=== PATIENT | female | born 1945 | race Caucasian/White ===

== ENCOUNTER 2023-09-15 06:03 | Observation (INO) | payer OTHER, SELFPAY ==
[2023-09-15] VITALS (8 sets, daily range): BP systolic 109–153; BP diastolic 60–88; BMI 27.1; BMI 27.0
[2023-09-15 00:50] LABS: ALT (SGPT) 21 U/L (0-35); AST (SGOT) 30 U/L (14-36); Albumin 3.6 g/dl (3.5-5.0); Alkaline Phosphatase 86 U/L (38-126); Blood Urea Nitrogen 29 mg/dl (7-17); Calcium 8.6 mg/dl (8.4-10.2); Carbon Dioxide 21 mmol/L (22-30); Chloride 111 mmol/L (98-107); Estimated Creatinine Clearance 47 ml/min; Glucose 117 mg/dl (70-99); Potassium 4.1 mmol/L (3.5-5.1); Sodium 136 mmol/L (135-145); Total Bilirubin 0.7 mg/dl (0.2-1.3); Total Protein 6.2 g/dl (6.3-8.2); eGFR > 60.00
[2023-09-15 00:53] LABS: % Basophils 0.5 % (0-2); % Eosinophils 1.3 % (0-6); % Immature Granulocytes 1.9 % (0-0.5); % Lymphocytes 11.7 % (20.5-51.1); % Monocytes 6.8 % (1.7-9.3); % Neutrophils 77.8 % (42.2-75.2); Absolute Basophils 0.1 10^3/uL (0-0.2); Absolute Eosinophils 0.1 10^3/uL (0-0.7); Absolute Immature Granulocytes 0.2 10^3/uL (0-0.05); Absolute Lymphocytes 1.2 10^3/uL (1.2-3.4); Absolute Monocytes 0.7 10^3/uL (0.1-0.6); Absolute Neutrophils 7.9 10^3/uL (1.4-6.5); Hematocrit 34.2 % (37.0-47.0); Hemoglobin 11.3 g/dL (12.0-16.0); Mean Corpuscular Hgb 30.5 pg (27.0-31.0); Mean Corpuscular Volume 92.4 fL (81.0-99.0); Nucleated Red Blood Cells % 0 %; Platelet Count 165 10^3/uL (130-400); Red Cell Dist. Width 17.2 % (11.5-14.5); White Blood Cell Count 10.2 10^3/uL (4.8-10.8)
[2023-09-15] MEDS: MORPHINE SULFATE 2 MG IV ×3 (02:26→09:58)
--- NOTE | 2023-09-15 03:07 | ED.GENMED ---
History of Present Illness
General
Chief Complaint: Fall
Source: patient
Exam Limitations: none
Time Seen by Provider: 09/15/23 00:44
Nursing documentation reviewed up to this point in time: agreed with
Travel History
Have you had any contact with someone who has COVID-19?: No
Do you have any symptoms of coronavirus? Fever > 100 degrees, chills, cough, shortness of breath, sore throat, loss of taste or smell, muscle aches, or headache?: No
History of Present Illness
History of Present Illness:
The patient is a 78-year-old female who reports that she tripped and fell over her walker just prior to arrival. She reports she fell onto her left side and says severe pain in the left buttock area. She did not hit her head. She denies neck pain
and back pain.
Past History
Past History
ED Past Medical History: Asthma, HTN and Other (PE, kidney stones)
ED Past Surgical History: Bowel resection and Other (Varicose vein surgery, kidney stone removal with kidney rupture, tubal ligation, 3 feet of small intestine removed.)
Social History
Tobacco: Non-smoker
Alcohol: None
Drug: None
Personal:
Living: alone
Employment: Retired
Family History
Family History: Other (Diabetes, hypertension, CAD)
Review of Systems
Review of Systems
Allergies reviewed?: Yes
All Other Systems: ROS reviewed and negative except as documented in HPI and ROS
Constitutional: Reports no symptoms
EENT: Reports no symptoms
Respiratory: Reports no symptoms
Cardiac: Reports no symptoms
ABD/GI: Reports no symptoms
: Reports no symptoms
Musculoskeletal: Reports joint pain
Neurological: Reports no symptoms
Endocrine: Reports no symptoms
Hematologic/Lymphatic: Reports no symptoms
Psychiatric: Reports no symptoms
Phy Exam
Physical Exam
Physical Exam:
Physical Exam
General: no apparent distress, not acutely ill. Atraumatic appearing face and head
Neck: supple. no meningeal signs. normal psoterior pharynx. Nontender
Heart: s1/s2 regular rate and rhythm, no murmur. equal radial pulses.
Lungs: no acute respiratory distress. clear bilaterally
Abdomen: normal bowel sounds. not tender. no CVAT
Neuro: alert and oriented. no focal neurological deficits
Skin: no rash
Psychiatric: well kept. interactive and cooperative
Extremities: no edema. Point tender posterior proximal leg. Patient guards left hip. Strong pulses of bilateral feet
Course
Orders/Labs/Results
Orders:
Orders
09/15/23 00:24
Complete Blood Count/With Diff Urgent
Comprehensive Metabolic Panel Urgent
09/15/23 01:06
Hip, Left 2-3 Views [CR Hip - LT w/wo Pel 2-3 Vw*] Urgent
Comment:
Reason For Exam: fall
Include a pelvis x-ray?: Yes
09/15/23 02:[address] Pelvis W/o Iv Contrast Urgent
Comment: ok to modify per DR Edmonds
Reason For Exam: fall, hip pain
Morphine Sulfate 2 mg .ROUTE .STK-MED ONE
09/15/23 02:25
Morphine Sulfate 2 mg IV NOW STA
09/15/23 03:19
Electrocardiogram (*1) Urgent
Reason for Study: PreOp
EKG- Treatment ONCE
Abnormal Lab Results
09/15/23
00:24
RBC 3.70 L 10^6/uL
(4.20-5.40)
Hgb 11.3 L g/dL
(12.0-16.0)
Hct 34.2 L %
(37.0-47.0)
RDW 17.2 H %
(11.5-14.5)
MPV 13.0 H fL
(7.4-10.4)
Abs Immat Gran (auto) 0.2 H 10^3/uL
(0-0.05)
Absolute Neuts (auto) 7.9 H 10^3/uL
(1.4-6.5)
Absolute Monos (auto) 0.7 H 10^3/uL
(0.1-0.6)
Immature Gran % 1.9 H %
(0-0.5)
Neutrophils % 77.8 H %
(42.2-75.2)
Lymphocytes % 11.7 L %
(20.5-51.1)
Chloride 111 H mmol/L
(98-107)
Carbon Dioxide 21 L mmol/L
(22-30)
BUN 29 H mg/dl
(7-17)
Glucose 117 H mg/dl
(70-99)
Total Protein 6.2 L g/dl
(6.3-8.2)
09/15/23 00:24
09/15/23 00:24
Vital Signs
Initial and Last Documented VS:
Initial Vital Signs
Temp Pulse Resp BP Pulse Ox
98.1 F 95 18 153/79 97
09/15/23 00:21 09/15/23 00:21 09/15/23 00:21 09/15/23 00:21 09/15/23 00:21
Last Documented Vital Signs
Temp Pulse Resp BP Pulse Ox
98.1 F 95 18 153/79 98
09/15/23 00:21 09/15/23 00:21 09/15/23 00:21 09/15/23 00:21 09/15/23 01:00
MDM/Problems Addressed
Differential Diagnosis Includes:
Left femur fracture, left pelvic fracture, lumbar spine fracture
MDM/Problems Addressed:
Patient presents with acute left hip pain after falling
Acute Exacerbation and/or Progression of Chronic Illness: HTN
*Pulse Oximetry
Patient hypoxic: no
*EKG
Interpreted by ED Provider?: NA
*Senior Label Specialist Interpretation
Rate: Senior Label Specialist- N/A
*Critical Care Note
Total Time (30-74mins, 75-104mins- exclusive of procedures): Not Applicable
Data Reviewed
Source: patient
Patient Management
Social determinants of health affecting care: Poor social support
Discussion with other providers: Hospitalist
ED Attending Note
-
Portions of this chart may have been created with voice recognition software.� Occasional wrong word or��sound alike� substitutions may have occurred due to the inherent limitations of voice recognition software.
Discharge Plan
Departure
Patient Disposition: Admit
Date of Disposition: 09/15/23
Time of Disposition: 03:07
Admit to: Med/Surg
Presentation/result/management discussed w/ accepting MD/DO: Hospitalist
Patient with high blood pressure during this ER visit?: Yes
Condition: Good
Covid-19: Not Applicable
Discharge Problem:
acute pubic rami fracture
Prescriptions:
No Action
cyanocobalamin (vitamin B-12) 1,000 MCG tablet
1,000 mcg PO MONTHLY
famotidine 20 MG tablet
10 mg PO DAILY
cranberry 400 MG capsule
1 tab PO DAILY
loratadine 10 MG tablet
10 mg PO DAILY@1200
iron, carbonyl [Feosol] 45 MG tablet
45 mg PO DAILY
cholecalciferol (vitamin D3) 2,000 UNITS tablet
3,000 units PO DAILY
multivitamin with folic acid [Tab-A-Sawyer] 1 TABLET tablet
1 tab PO DAILY
carvedilol 6.25 MG tablet
6.25 mg PO BID 30 Days Qty: 60 0RF
Align 4 MG capsule
4 mg PO DAILY
acetaminophen [Tylenol Arthritis Pain] 650 MG tablet extended release
1,300 mg PO Q8HPRN PRN (Reason: mild pain)
diltiazem HCl 120 MG capsule,extended release 12 hr
240 mg PO DAILY
Probiotic
1 tab PO DAILY
meclizine 25 MG tablet
25 mg PO Q8HPRN PRN (Reason: nausea or vertigo) Qty: 21 0RF
cyclosporine [Restasis] 10 DROPS dropperette
1 drp BOTH EYES BID
Eliquis 5 MG tablet
5 mg PO BID
Voltaren
1 dose topical PRN PRN (Reason: pain)
Prolia 60 MG/ML syringe
60 mg SQ .[id number]
levalbuterol tartrate 1 PUFF HFA aerosol inhaler
1 puff inhalation R Q4HPRN PRN (Reason: SOB)
cephalexin 500 mg capsule
500 mg PO BID 7 Days Qty: 14 0RF
hydrocodone-acetaminophen 5-325 mg tablet
1 tab PO Q8H PRN (Reason: Pain) Qty: 10 0RF
ondansetron HCl 4 mg tablet
4 mg PO Q8H PRN (Reason: nausea and vomiting) 4 Days Qty: 10 0RF
diazepam 5 mg tablet
5 mg PO Q8H PRN (Reason: muscle spasm) Qty: 15 0RF
prednisone 10 mg Tablet
See Rx Instructions .ROUTE .COMPLEX Qty: 30 0RF
Rx Instructions:
Take By Mouth:
40 mg daily x3 days, 30 mg daily x3 days,
20 mg daily x3 days, 10 mg daily x3 days.
Referrals:
Zenobia Spivey MD [Family Provider] -
Interventions
Interventions:
*Risk Screen - Suicide Last Done: 09/15/23 00:21
*General Assessment Last Done: 09/15/23 00:21
*Neglect/Abuse Screening Last Done: 09/15/23 00:21
ED- Fall Risk Assessment Last Done: 09/15/23 00:28
ED-Musculoskeletal Assessment Last Done: 09/15/23 00:28
ED- Neurological Assessment Last Done: 09/15/23 00:28
ED-Skin Assessment Last Done: 09/15/23 00:28
--- NOTE | 2023-09-15 05:44 | HPS.HSE ---
Family Physician
-
Family Physician: Zenobia Spivey
Chief Complaint
-
Fall
History of Present Illness
Patient is a 78y F with PMH significant for hypertension, osteoporosis and prior PE who presents to ED complaining of fall at home. Patient states that she ambulates with a walker at baseline. This evening she was walking and went to turn when
she leaned to far to the L and fell to the side. She denies any prodrome of lightheadedness, dizziness, chest pain, etc prior to the fall. She denies striking her head. No LOC.
Patient landed on her L sided and noted immediate pain in the L groin region. She presented to ED for evaluation where imaging reveals evidence of a L pelvic fracture.
Patient notes that she recently suffered vertebral compression fractures due to severe osteoporosis (no fall / injury). She has been on a regimen of pain medications at home - with little improvement in her discomfort.
In addition, she was started on Lasix in July for LE edema. She states that she stopped taking this about 1 week ago due to issues with urinary frequency.
Patient was treated for a UTI with 10 days of PO abx as an outpatient. She just completed this course; however, she continues to complain of urinary frequency and dysuria.
No fevers / chills.
No chest pain or dyspnea.
Medical History
Past Medical History
Past Medical History: Reports Other
Additional Past Medical History:
Hypertension
Osteoporosis
Chronic HFpEF
B12 Deficiency
History of PE
Iron Deficiency Anemia
Nephrolithiasis
PUD / GERD
SVT
DJD
Past Surgical History: Reports Other
Additional Past Surgical History:
Eye Surgeries
Tubal Ligation
Cholecystectomy
Partial Bowel Resection for Crohn's / Ileitis (in her 20s)
Skin Cancer Excisions
Cataracts
Ureteroscopies
Social History
Tobacco: Non-smoker
Alcohol: None
Drug: None
Family History
Family History: Not pertinent
Allergies / Home Medications
Allergies reflects when Allergies were last updated in [facility].
Home Medications with original date entered in [facility]
Allergy/Medication List:
Allergies
Allergy/AdvReac Type Severity Reaction Status Date / Time
ampicillin Allergy Rash Verified 09/15/23 00:19
ibuprofen Allergy does not Verified 09/15/23 00:19
take do to
blood
thinners.
latex [Latex] Allergy SWELLING,RA Verified 09/15/23 00:19
SH
NSAIDS (Non-Steroidal Allergy does not Verified 09/15/23 00:19
Anti-Inflamma take due
to blood
thinners
Penicillins Allergy Rash Verified 09/15/23 00:19
Sulfa (Sulfonamide Allergy Rash Verified 09/15/23 00:19
Antibiotics)
Seasonal Allergies Allergy congestion Uncoded 09/15/23 00:19
Home Medications
cholecalciferol (vitamin D3) 50 mcg (2,000 unit) tablet 4,000 units PO DAILY 12/19/19
cranberry 400 mg capsule 1 tab PO DAILY 12/19/19
cyanocobalamin (vitamin B-12) 1,000 mcg tablet 1,000 mcg PO Q3W 12/19/19
famotidine 20 mg tablet 20 mg PO HS 12/19/19
iron, carbonyl 45 mg tablet (Feosol) 45 mg PO DAILY 12/19/19
multivitamin with folic acid 400 mcg tablet (Tab-A-Sawyer) 1 tab PO DAILY 12/19/19
Bifidobacterium infantis 4 mg capsule (Align) 4 mg PO DAILY 01/09/20
acetaminophen 650 mg tablet,extended release (Tylenol Arthritis Pain) 1,300 mg PO Q8HPRN PRN mild pain 01/09/20
apixaban 5 mg tablet (Eliquis) 5 mg PO BID 10/20/21
levalbuterol tartrate 45 mcg/actuation aerosol inhaler 1 puff inhalation R Q4HPRN PRN SOB 10/20/21
carvedilol 12.5 mg tablet 12.5 mg PO BID 09/15/23
furosemide 20 mg tablet (Lasix) 20 mg PO DAILY 09/15/23
hydrocodone 10 mg-acetaminophen 325 mg tablet 1 tab PO Q6H PRN Pain 09/15/23
methenamine hippurate 1 gram tablet (Hiprex) 1 g PO BID 09/15/23
peg 400-propylene glycol (PF) 0.4 %-0.3 % eye drops in a dropperette (Systane (PF)) 1 drp ophthalmic (eye) BID 09/15/23
potassium chloride 10 mEq tablet,extended release 10 meq PO BID 09/15/23
tramadol 50 mg tablet 50 mg PO TID PRN Pain 09/15/23
travoprost 0.004 % eye drops (Travatan Z) 1 drp ophthalmic (eye) QPM 09/15/23
turmeric 400 mg capsule mg PO 09/15/23
Review of Systems
-
History Source: Patient
A 12 point ROS was completed and negative except as noted: Yes
Constitutional: Reports Fatigue; Denies Fever or Chills
EENT: Denies Sore Throat
Respiratory: Denies Cough or Trouble Breathing
Cardiac: Denies Chest Pain, Palpitations or Syncope
Abdomen/GI: Denies Abdominal Pain, Nausea, Vomiting or Diarrhea
: Reports Dysuria and Frequency; Denies Flank Pain or Incontinence
Musculoskeletal: Reports Joint Pain, Edema and Other (Back Pain)
Neurological: Denies Dizzy or Headache
Psych: Reports Depression
Physical Exam
Vital Signs
Vital Signs
Temp Pulse Resp BP Pulse Ox
98.1 F 95 18 153/79 98
09/15/23 00:21 09/15/23 00:21 09/15/23 00:21 09/15/23 00:21 09/15/23 01:00
Physical Exam
General: Other (78y F in mild distress due to pain.)
HEENT: Moist mucous membranes and PERRLA
Respiratory: Clear; No Wheezes, Rales or Rhonchi
Cardiac: S1/S2, Regular Rhythm and Murmur (II/ ELOISE)
GI: Soft, Non Tender, Non Distended and Normal Bowel Sounds
Musculoskeletal: No Clubbing, No Cyanosis and Other (2+ pitting edema b/l LEs.)
Neuro: AO x 3
Laboratory Results
-
09/15/23 00:24
09/15/23 00:24
Laboratory Results
Total Bilirubin 0.7 mg/dl (0.2-1.3) 09/15/23 00:24
AST 30 U/L (14-36) 09/15/23 00:24
ALT 21 U/L (0-35) 09/15/23 00:24
Alkaline Phosphatase 86 U/L (38-126) 09/15/23 00:24
Impression/Plan
-
A/P: Patient is a 78y F with PMH significant for hypertension and osteoporosis who presents to ED for evaluation s/p fall at home.
Fall at Home
Pelvic Fracture
- Observe overnight for further evaluation and treatment.
- CT shows fracture L pubis symphysis into the L superior pubic ramus.
- Pain control / supportive care.
- PT / OT evaluations and weight bearing as tolerated.
Vertebral Compression Fractures
Osteoporosis
- Patient previously on Prolia, but stopped fairly recently for dental procedure(s).
- Has since had non-traumatic vertebral fractures with uncontrolled pain.
- Continue efforts at pain control as noted above.
- If vertebral pain continues to limit mobility - consider IR / vertebroplasty.
Benign Hypertension
- Stable. Continue outpatient med regimen and adjust as needed.
Chronic HFpEF
- Recently prescribed Lasix for LE swelling (07/2023).
- Patient notes that she stopped this due to urinary frequency.
- Would restart Lasix given edema noted on exam.
- Follow I/Os, daily weights, etc.
- Echo done 07/2023 with normal LVEF.
Chronic Anemia - Multifactorial
- Stable. Documented components of iron deficiency and B12 deficiency.
- Continue replacement.
- Follow H&H for changes.
History of PE - Unprovoked
DVT Prophylaxis
- Would continue Eliquis for now given increased risk for VTE while relatively immobile.
- Monitor for worsening anemia, evidence of bleeding, etc.
Code Status: Full
[2023-09-15 07:53] LABS: Glucose - Point of Care 109 mg/dl (70-99)
--- NOTE | 2023-09-15 08:08 | W.PN.HOSP.TC ---
Today's Communication/Plan
-
see A/P
Assessment / Plan
Assessment / Plan
78y F with PMH significant for hypertension, osteoporosis and prior PE who presented to ED complaining of fall at home.�Patient states that she ambulates with a walker at baseline. In the evening of admission, she was walking and went to turn
when she leaned too far to the L and fell to the side.� She denies any prodrome of lightheadedness, dizziness, chest pain, etc prior to the fall.� She denies striking her head.�No LOC.
Patient landed on her L sided and noted immediate pain in the L groin region.� She presented to ED for evaluation where imaging reveals evidence of a L pelvic fracture.
Patient notes that she recently suffered vertebral compression fractures due to severe osteoporosis (no fall / injury).�She has been on a regimen of pain medications at home - with little improvement in her discomfort.
In addition, she was started on Lasix in July for LE edema.�She states that she stopped taking this about 1 week ago due to issues with urinary frequency.
Patient was treated for a UTI with 10 days of PO abx as an outpatient.� She just completed this course; however, she continues to complain of urinary frequency and dysuria.
No fevers / chills. No chest pain or dyspnea.
A/P:
# Mechanical fall at Home
# Pelvic Fracture
CT shows fracture L pubis symphysis into the L superior pubic ramus.
Pain control / supportive care. Bowel regimen added while on pain meds
PT / OT evaluations and weight bearing as tolerated.
# Vertebral Compression Fractures
# Osteoporosis
Patient previously on Prolia, but stopped fairly recently for dental procedure(s).
Has since had non-traumatic vertebral fractures with uncontrolled pain.
Continue efforts at pain control as noted above.
If vertebral pain continues to limit mobility - consider IR / vertebroplasty.
# Benign Hypertension�- Stable.�
Continue outpatient med regimen and adjust as needed.
# Chronic HFpEF
Recently prescribed Lasix for LE swelling (07/2023). Patient notes that she stopped this due to urinary frequency.
Would restart Lasix given edema noted on exam.
Follow I/Os, daily weights, etc.
Echo done 07/2023 with normal LVEF.
# Chronic Anemia - Multifactorial- Stable.�
Documented components of iron deficiency and B12 deficiency.
Continue replacement.
Follow H&H for changes.
# History of PE - Unprovoked
# DVT Prophylaxis
Would continue Eliquis for now given increased risk for VTE while relatively immobile.
Monitor for worsening anemia, evidence of bleeding, etc.
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
Code Status:� Full
Anticipated Discharge: 24 - 48 hours
Subjective/Interval History
-
Date of Service: September 15, 2023
Objective Data
-
Labs:
Laboratory Results
09/15/23
00:24
WBC 10.2
Hgb 11.3 L
Hct 34.2 L
Plt Count 165
Sodium 136
Potassium 4.1
Chloride 111 H
Carbon Dioxide 21 L
BUN 29 H
Creatinine 0.9
Glucose 117 H
Calcium 8.6
Total Bilirubin 0.7
AST 30
ALT 21
Alkaline Phosphatase 86
Vital Signs:
Vital Signs
Temp Pulse Resp BP Pulse Ox
36.7 C 95 18 153/79 98
09/15/23 00:21 09/15/23 00:21 09/15/23 00:21 09/15/23 00:21 09/15/23 01:00
Review of Systems
-
Musculoskeletal: Reports Other (L hip pain)
Physical Exam
-
General: Well Developed, Well Nourished, No Apparent Distress, Comfortable and Conversant; Negative Respiratory Distress
HEENT: Normocephalic, Atraumatic, Nose Appears Normal and Ears Appear Normal; Negative Oxygen
Respiratory: Clear to Auscultation and Non Labored Respirations; Negative Accessory Resp Muscle Use
Cardiac: Regular Rhythm and S1/S2
GI: Soft, Nontender, Nondistended and Normal Bowel Sounds
Musculoskeletal: Edema, Right Lower Extrem and Edema, Left Lower Extrem
Skin: Warm and Dry
Neuro: Awake, Alert, Oriented and AO x 3
Psych: Calm and Intact Judgement/Insight
Data Reviewed
-
Labs: Labs Reviewed by me
[2023-09-15 09:08] LABS: Urine Albumin Negative (Neg - Trace); Urine Bilirubin Negative (Negative); Urine Character Clear (Clear); Urine Color Yellow; Urine Glucose Negative (Negative); Urine Ketone Negative (Negative); Urine Leukocyte Negative (Negative); Urine Nitrite Negative (Negative); Urine Occult Blood 4+ (Negative); Urine Specific Gravity 1.015 (<1.030); Urine Urobilinogen Negative (Neg - 1+)
[2023-09-15 09:39] LABS: Urine Amorphous Seen; Urine Mucus Few
[2023-09-15 09:40] LABS: Urine Bacteria Few (Negative); Urine White Cell 0-2 /HPF (0-5)
[2023-09-15] MEDS: TYLENOL 1000 MG PO ×3 (09:59→21:27)
[2023-09-15] MEDS: LASIX 20 MG PO (09:59)
[2023-09-15] MEDS: VITAMIN D3 (cholecalciferol) 100 MCG PO (10:00)
[2023-09-15] MEDS: COREG 12.5 MG PO ×2 (10:00→21:27)
[2023-09-15] MEDS: ELIQUIS 5 MG PO ×2 (10:00→21:27)
[2023-09-15] MEDS: FEOSOL 325 MG PO (10:00)
[2023-09-15 11:49] LABS: TSH Reflex To Free T4 6.53 uIU/ml (0.47-4.68)
[2023-09-15 12:19] LABS: Free T4 0.98 ng/dl (0.78-2.19)
--- NOTE | 2023-09-15 13:48 | CM ---
CM met with patient in room. Patient confirmed demographics. Patient lives independently in a first floor apartment.Patient does not have a history of VN or SNF. Patient uses a cane and walker for ambulation. Patient is active with her PCP and uses
[facility] in [place] for medication services. RODRIGUEZ letter given an discussed.
CM discussed SNF options. Patient and daughter are agreeable to placement. CM pending PT recommendations. CM sent preliminary referrals to [facility], [facility] and [facility]. Patient's daughter will review Medicare.gov ratings and
contact CM with further choices.
PLAN: SNF
[2023-09-15] MEDS: ROXICODONE 5 MG PO ×2 (13:54→18:53)
[2023-09-15] MEDS: TRAVATAN Z 1 DROP OPHTH (17:14)
--- NOTE | 2023-09-15 18:50 | PTCARENOTE ---
1844 Pt arrived from ER via stretcher. Alert and oriented x 3. Pt able to take a few steps from stretcher to bed with assitance (rolling walker).
VS stable. Pulse ox 97% on room air. Noted MD orders, pt requested pain med. Roxicodone 5 mg po given as ordered. Reported to switchboard clerk nurse.
[2023-09-15] MEDS: PEPCID 20 MG PO (21:28)
[2023-09-16] VITALS (7 sets, daily range): BP systolic 83–149; BP diastolic 52–82; PULSE 92–99; O2SAT 95
[2023-09-16] MEDS: ROXICODONE 5 MG PO ×4 (04:07→23:52)
[2023-09-16 08:01] LABS: Hematocrit 30.6 % (37.0-47.0); Hemoglobin 9.9 g/dL (12.0-16.0); Mean Corp Hgb Conc. 32.4 g/dL (33.0-37.0); Mean Corpuscular Hgb 30.4 pg (27.0-31.0); Mean Corpuscular Volume 93.9 fL (81.0-99.0); Red Blood Cell Count 3.26 10^6/uL (4.20-5.40); Red Cell Dist. Width 17.2 % (11.5-14.5)
[2023-09-16 08:20] LABS: Blood Urea Nitrogen 23 mg/dl (7-17); Calcium 8.6 mg/dl (8.4-10.2); Chloride 111 mmol/L (98-107); Glucose 91 mg/dl (70-99); Potassium 4.1 mmol/L (3.5-5.1); Sodium 137 mmol/L (135-145)
[2023-09-16 08:22] LABS: Platelet Count 98 10^3/uL (130-400)
[2023-09-16 08:23] LABS: Mean Platelet Volume 12.7 fL (7.4-10.4)
[2023-09-16 08:44] LABS: Carbon Dioxide 24 mmol/L (22-30); Estimated Creatinine Clearance 47 ml/min; eGFR > 60.00
--- NOTE | 2023-09-16 09:12 | W.PN.HOSP.TC ---
Today's Communication/Plan
-
see A/P
Assessment / Plan
Assessment / Plan
78y F with PMH significant for hypertension, osteoporosis and prior PE who presented to ED complaining of fall at home.�Patient states that she ambulates with a walker at baseline. In the evening of admission, she was walking and went to turn
when she leaned too far to the L and fell to the side.� She denies any prodrome of lightheadedness, dizziness, chest pain, etc prior to the fall.� She denies striking her head.�No LOC.
Patient landed on her L sided and noted immediate pain in the L groin region.� She presented to ED for evaluation where imaging reveals evidence of a L pelvic fracture.
Patient notes that she recently suffered vertebral compression fractures due to severe osteoporosis (no fall / injury).�She has been on a regimen of pain medications at home - with little improvement in her discomfort.
In addition, she was started on Lasix in July for LE edema.�She states that she stopped taking this about 1 week ago due to issues with urinary frequency.
Patient was treated for a UTI with 10 days of PO abx as an outpatient.� She just completed this course; however, she continues to complain of urinary frequency and dysuria.
No fevers / chills. No chest pain or dyspnea.
A/P:
# Mechanical fall at Home
# Pelvic Fracture
CT shows fracture L pubis symphysis into the L superior pubic ramus.
Pain control with Tylenol oxycodone, IV morphine. Bowel regimen while on opiate. Added lidocaine patch
PT / OT recc acute rehab. Physiatry consulted.
# Vertebral Compression Fractures
# Osteoporosis
Patient previously on Prolia, but stopped fairly recently for dental procedure(s).
Has since had non-traumatic vertebral fractures with uncontrolled pain.
Continue efforts at pain control as noted above.
If vertebral pain continues to limit mobility - consider IR / vertebroplasty.
# Benign Hypertension�- Stable.�
Continue outpatient med regimen and adjust as needed.
# Chronic HFpEF
Recently prescribed Lasix for LE swelling (07/2023). Patient notes that she stopped this due to urinary frequency.
Restarted low dose Lasix given edema noted on exam. Follow I/Os, daily weights, etc.
Echo done 07/2023 with normal LVEF.
# Chronic Anemia, Multifactorial- Stable.�
Documented components of iron deficiency and B12 deficiency.
Continue replacement.
Follow Hgb for changes.
# History of PE - Unprovoked
# DVT Prophylaxis
Would continue Eliquis for now given increased risk for VTE while relatively immobile.
Monitor for worsening anemia, evidence of bleeding, etc.
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
Code Status:� Full
DW RN
Anticipated Discharge: 24 - 48 hours
Subjective/Interval History
-
Date of Service: September 16, 2023
Objective Data
-
Labs:
Laboratory Results
09/16/23
06:42
WBC 6.0
Hgb 9.9 L
Hct 30.6 L
Plt Count 98 L D
Sodium 137
Potassium 4.1
Chloride 111 H
Carbon Dioxide 24
BUN 23 H
Creatinine 0.9
Glucose 91
Calcium 8.6
Vital Signs:
Vital Signs
Temp Pulse Resp BP Pulse Ox
37.1 C 98 20 132/82 96
09/16/23 07:30 09/16/23 07:30 09/16/23 07:30 09/16/23 07:30 09/16/23 07:30
Review of Systems
-
Musculoskeletal: Reports Other (lower back pain, L hip pain)
Physical Exam
-
General: Well Developed, Well Nourished, No Apparent Distress, Comfortable and Conversant; Negative Respiratory Distress
HEENT: Normocephalic, Atraumatic, Nose Appears Normal and Ears Appear Normal; Negative Oxygen
Respiratory: Clear to Auscultation and Non Labored Respirations; Negative Accessory Resp Muscle Use
Cardiac: Regular Rhythm and S1/S2
GI: Soft, Nontender, Nondistended and Normal Bowel Sounds
Musculoskeletal: Edema, Right Lower Extrem and Edema, Left Lower Extrem
Skin: Warm and Dry
Neuro: Awake, Alert, Oriented and AO x 3
Psych: Calm and Intact Judgement/Insight
Data Reviewed
-
Labs: Labs Reviewed by me
[2023-09-16] MEDS: TYLENOL 1000 MG PO ×3 (10:00→22:02)
[2023-09-16] MEDS: ELIQUIS 5 MG PO ×2 (10:01→20:15)
[2023-09-16] MEDS: LASIX 20 MG PO (10:02)
[2023-09-16] MEDS: COREG 12.5 MG PO ×2 (10:02→20:12)
[2023-09-16] MEDS: VITAMIN D3 (cholecalciferol) 100 MCG PO (10:03)
[2023-09-16] MEDS: FEOSOL 325 MG PO (10:03)
[2023-09-16] MEDS: LIDOCAINE 4% PATCH 2 PATCH TOPICAL (10:04)
--- NOTE | 2023-09-16 10:39 | CM ---
Addendum entered by Elsy Sen 09/16/23 12:53:
DaughterShital, called; reported that family would be agreeable to [facility] if bed at [facility] was not available when stable for discharge. Third preference for Acute Rehab would be [facility]
Original Note:
PT recommends Acute Rehab when medically stable for discharge
CM received a call from patient's daughterShital, # [phone] after patient called her to tell her that Attending recommended [facility]
Explained discharge plan process for acute rehab hospital to daughter
PM&R ordered
Referrals to [place] locations sent via [facility]
Patient will need insurance Auth, Philip 64
Per Di from [facility] location may not have bed available until Wednesday
CM contacted daughterShital, and asked if family would consider another [place] location if no bed @ was available; and identified other facilities for referral.
Daughter reported that she would speak with her sister and call CM back with decision
--- NOTE | 2023-09-16 11:26 | CON.GI ---
Addendum entered and electronically signed by Lora Reid MD 09/16/23 20:35:
I saw and examined the patient.
The WHEEL PRESS CLERK or PA's note was reviewed and I agree with the note.
Comment: 78-year-old female with history of asthma, history of Schatzki's ring status post dilation, osteoporosis presenting with fall and concern for pelvic fracture, during hospital admission, had some diarrhea and was asked to see for possible
history of Crohn's. Reviewing with patient, she had 3 feet of her small bowel removed for ulcerations, unclear if this was Crohn's, never had any small bowel obstructions, no history of strictures, fistulas, colonoscopy in 2012 and random biopsies
without any evidence of inflammation to suggest inflammatory bowel disease. Chronically has 3-4 loose stool, takes Imodium twice a week and this does not affect her quality of life. No nocturnal episodes.
Currently having formed stool without any diarrhea.
-She has history of-part of small bowel resected for ileitis of unclear etiology but no proven Crohn's
She is not on any medication for maintenance of Crohn's disease in the past 50 years
I highly doubt if this is Crohn's disease
-Diarrhea resolved and has formed stool
If diarrhea records, will check stool for C. difficile, cultures, fecal fat and calprotectin
Currently on narcotics
Monitor bowel movements, watch for constipation on narcotics
We will follow-up with her as an outpatient, patient and daughter agreeable
No role for GI workup at this time. Will sign off, please call back if needed.
Original Note:
Consultation
-
Date/Time Consultation Requested: 09/16/23 1030
Date/Time Consultation Performed: 09/16/23 1330
Requesting Provider: Nori Woods MD
Performing Provider: EHSAN Jean, Lora Reid MD
Reason for Consultation: crohns disease with diarrhea
Medical History
Chief Complaint / HPI
Chief Complaint: diarrhea
History of Present Illness:
Pt is a 78yo with hx multiple medical problems including SB resection for ileitis in her 20's, pernicious anemia, iron deficiency, Schatzki's ring with dilation, PE on Eliquis, osteoporosis with vert fractures, renal stones, MR, PUD with admission
to with fall with concern for pelvic fracture. She is noted with diarrhea during admission and asked to see. In reviewing with patient hx surgery many years ago. She had never been on medication for IBD and controlled her symptoms with
antidiarrheal medication taking every several days. She typically has 4 stools with some form daily sometimes loose stool with urgency. She has had 2 colonoscopy since [address] Wolf with stable findings TA and HP polyps and bx 2011 with
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
She occasional occasional dysphagia with hx prior dilation, denies GERD, nausea, vomiting, abdominal pain, constipation or rectal bleeding.
Past Medical History
Past Medical History: Asthma and Other (s/p fall, possible crohn's disease, PE, renal stones, b12 deficiency, Iron deficiency, schatzki's ring with dilation, osteopenia, MR, basal cell CA,, glaucoma, PUD, mediastinal lymphadenopathy, mitral
insufficiency, comp fx, colon polyps, covid 19, )
Past Surgical History: Bowel Resection (SB resection), Cholecystectomy and Other (vericose vein surgery, kidney stone removal with kidney rupture, tubal ligation, mohs surgery)
Social History
Tobacco: Non-Smoker
Alcohol: None
Drug: None
Living: Alone
Employment: Retired
Family History
Family History: Reviewed & Not Pertinent
Allergies / Home Medications
Allergy/AdvReac Type Severity Reaction Status Date / Time
ampicillin Allergy Rash Verified 09/15/23 00:19
ibuprofen Allergy does not Verified 09/15/23 00:19
take do to
blood
thinners.
latex [Latex] Allergy SWELLING,RA Verified 09/15/23 00:19
SH
NSAIDS (Non-Steroidal Allergy does not Verified 09/15/23 00:19
Anti-Inflamma take due
to blood
thinners
Penicillins Allergy Rash Verified 09/15/23 00:19
Sulfa (Sulfonamide Allergy Rash Verified 09/15/23 00:19
Antibiotics)
Seasonal Allergies Allergy congestion Uncoded 09/15/23 00:19
Medication Instructions Recorded
cholecalciferol (vitamin D3) 50 4,000 units PO DAILY Supplement 12/19/19
mcg (2,000 unit) tablet
cyanocobalamin (vitamin B-12) 1,000 mcg PO Q3W Supplement 12/19/19
1,000 mcg tablet
iron, carbonyl 45 mg tablet 45 mg PO DAILY Supplement 12/19/19
(Feosol)
multivitamin with folic acid 400 1 tab PO DAILY Supplement 12/19/19
mcg tablet (Tab-A-Sawyer)
Bifidobacterium infantis 4 mg 4 mg PO DAILY Supplement 01/09/20
capsule (Align)
apixaban 5 mg tablet (Eliquis) 5 mg PO BID Blood Clot 10/20/21
Prevention/Tx
calcium citrate 500 mg PO NOON Supplement 09/15/23
carboxymethylcellulose sodium 0.25 1 drp BOTH EYES QID PRN dry eyes 09/15/23
% eye drops in a dropperette
(TheraTears)
carvedilol 12.5 mg tablet 12.5 mg PO BID Heart Disease/Blood 09/15/23
Pressure
cranberry fruit concentrate 250 mg 500 mg PO DAILY Supplement 09/15/23
chewable tablet (Azo Cranberry)
furosemide 20 mg tablet (Lasix) 20 mg PO DAILY Fluid 09/15/23
Retention/Swelling
hydrocodone 10 mg-acetaminophen 1 tab PO Q6H PRN Pain 09/15/23
325 mg tablet
melatonin 5 mg tablet 5 mg PO HS PRN sleep 09/15/23
methenamine hippurate 1 gram 1 g PO BID Supplement 09/15/23
tablet (Hiprex)
peg 400-propylene glycol (PF) 0.4 1 drp ophthalmic (eye) BID dry eyes 09/15/23
%-0.3 % eye drops in a dropperette
(Systane (PF))
travoprost 0.004 % eye drops 1 drp BOTH EYES QPM Eye Condition 09/15/23
(Travatan Z)
Review of Systems
-
History Source: Patient
Constitutional: Reports No Symptoms
EENT: Reports No Symptoms
Respiratory: Reports No Symptoms
Cardiac: Reports No Symptoms
Abdomen/GI: Reports Diarrhea
Musculoskeletal: Reports Other (pain with pelvic fracture)
Skin: Reports No Symptoms
Neurological: Reports Weakness
Endocrine: Reports No Symptoms
Hematologic/Lymphatic: Reports No Symptoms
Vital Signs
Temp Pulse Resp BP Pulse Ox
98.8 F 98 20 132/82 96
09/16/23 07:30 09/16/23 07:30 09/16/23 07:30 09/16/23 07:30 09/16/23 07:30
Physical Exam
Exam
General: Well Developed, Well Nourished and No Apparent Distress
HEENT: Normocephalic and Anicteric
Respiratory: Clear
Cardiac: Regular Rhythm
GI: Soft, Non Tender and Non Distended
Musculoskeletal: No Clubbing and No Cyanosis
Skin: Warm and Dry
Neuro: Awake, Alert and AO x 3
Psych: Calm
Results
WBC 6.0 10^3/uL (4.8-10.8) 09/16/23 06:42
Hgb 9.9 g/dL (12.0-16.0) L 09/16/23 06:42
Hct 30.6 % (37.0-47.0) L 09/16/23 06:42
MCV 93.9 fL (81.0-99.0) 09/16/23 06:42
Plt Count 98 10^3/uL (130-400) L D 09/16/23 06:42
Absolute Neuts (auto) 7.9 10^3/uL (1.4-6.5) H 09/15/23 00:24
Sodium 137 mmol/L (135-145) 09/16/23 06:42
Potassium 4.1 mmol/L (3.5-5.1) 09/16/23 06:42
Chloride 111 mmol/L (98-107) H 09/16/23 06:42
Carbon Dioxide 24 mmol/L (22-30) 09/16/23 06:42
BUN 23 mg/dl (7-17) H 09/16/23 06:42
Creatinine 0.9 mg/dL (0.6-1.0) 09/16/23 06:42
Calcium 8.6 mg/dl (8.4-10.2) 09/16/23 06:42
Total Bilirubin 0.7 mg/dl (0.2-1.3) 09/15/23 00:24
AST 30 U/L (14-36) 09/15/23 00:24
ALT 21 U/L (0-35) 09/15/23 00:24
Alkaline Phosphatase 86 U/L (38-126) 09/15/23 00:24
Diagnostic Image Results:
Prior GI Procedures:
EGD: �07/2016 [place] � � - Normal esophagus. Several biopsies were obtained for
�� � � � � � � � � � evaluation of eosinophilic esophagitis.
�� � � � � � � � � � - Esophagitis. Biopsied.
�� � � � � � � � � � - Low-grade of narrowing and non-obstructing Schatzki
�� � � � � � � � � � ring. Dilated with 18 mm balloon.
�� � � � � � � � � � - Small hiatus hernia.
�� � � � � � � � � � - Mild antral gastritis. Biopsied.
�� � � � � � � � � � - A few gastric polyps. Biopsied.
�� � � � � � � � � � - Bilious gastric fluid.
�� � � � � � � � � � - Normal examined duodenum. Biopsied.
bx neg
Colonoscopy: 10/2020 [facility]
- Non-bleeding internal hemorrhoids.
�� � � � � � � � � � � - Three 4 to 7 mm polyps in the distal descending
�� � � � � � � � � � � colon. Biopsied.
�� � � � � � � � � � � - One 5 mm polyp in the mid ascending colon. Biopsied.
�� � � � � � � � � � � - Patent end-to-end ileo-colonic anastomosis,
�� � � � � � � � � � � characterized by healthy appearing mucosa- normal
�� � � � � � � � � � � appearing surgical site.
bx TA, HP polyps
colonsocopy: 2011 [facility] bx with chronic inflammatory cells
� � - Patent end-to-side ileo-colonic anastomosis with ulcer
�� � � � � � � � � � at anastomic site. This was biopsied.
�� � � � � � � � � � - The entire examined colon is normal. Biopsies were
�� � � � � � � � � � taken with a cold forceps from the entire colon for
�� � � � � � � � � � evaluation of microscopic colitis.
IC anastomosis with chronic inflammatory cells neg microscopic colitis
Assessment / Plan
-
Pt is a 78yo with hx multiple medical problems including SB resection for ileitis in her 20's, pernicious anemia, iron deficiency, PE on Eliquis, osteoporosis with vert fractures, renal stones, MR, PUD with admission to with fall with concern
for pelvic fracture. She is noted with diarrhea during admission and asked to see.
-diarrhea
-fall on admission with pelvic fracture
-? hx crohn disease with ileitis and distant hx SB resection in 20's
-hx pernicious and iron deficiency anemia
-PE on Eliquis
other medical problems:
-osteoporosis
-compression fractures
-renal stones
-MR
-PUD
-HTN
-CHF
PLAN:
Etiology of diarrhea related to post surgical diarrhea as longstanding vs infectious etiology, IBD, pancreatic insufficiency, celiac vs other
check stool studies, fecal brisa, hayward elastase and fecal fat
monitor stool output during admission
add TSH and celiac panel
stop ordered senna
if c-diff neg ok to resume antidiarrheal PRN
OP follow up to review for eventual repeat colonoscopies with serial biopsies to reassess for crohns when improved from pelvic fracture
cont diet as tolerated
consider trial of Questran
remains on Eliquis
-
-
Thank you for consultation and allowing me to participate in the patient's care. Please call the electronic equipment set up operator GI physician during the after hours with any questions or concerns.
[2023-09-16 15:22] LABS: Erythrocyte Sed Rate 18 mm/hour (0-20)
[2023-09-16 15:56] LABS: TSH 4.07 uIU/ml (0.47-4.68)
[2023-09-16 16:00] LABS: IgA 259 mg/dl (70-400)
--- NOTE | 2023-09-16 16:31 | CON.MD ---
Documented by User: Martina Mukherjee PA-C 09/16/23 17:55
Consultation - Medical
-
Referring Provider: Nori Woods
Chief Complaint: Pelvic pain
History of Present Illness: Pt is a 78 year old female with PMH of (small bowel resection for ileitis in her 20's, pernicious anemia, iron deficiency, Schatzki's ring with dilation, PE on Eliquis, osteoporosis with vert fractures,� renal stones,
MR, PUD who was admitted after she tripped and fell over her walker just prior to arrival.� She reports she fell onto her left side and says severe pain in the left buttock area.� She did not hit her head.� She denies neck pain and back pain. CT
scan- with subtle nondisplaced fracture of the left parasymphyseal pubic body extending into the left superior pubic ramus and Hypertrophic degenerative changes are noted about both hips on xray. H/o compresion fractures due to Severe osteoporosis.
She has been on a regimen of pain medications at home with little improvement. Patient was treated for UTI with 10 days of p.o. antibiotic as an outpatient. She just completed this course.
.
Past Medical History:Asthma, PE, renal stones, b12 deficiency, Iron deficiency, schatzki's ring with dilation, osteopenia, MR, basal cell CA,, glaucoma, PUD, mediastinal lymphadenopathy, mitral insufficiency, comp fx, colon polyps, covid 19, )
Procedure History: �Bowel Resection, Cholecystectomy, varicose vein surgery, kidney stone removal with kidney rupture, tubal ligation, Mohs�surgery
Family History: Diabetes, hypertension, CAD
Social History:
Functional Level Premorbidly: Independent with all activities. Use of Rolling Walker
Functional Level Currently: Toileting�dependent, lower extremity self-care�dependent, patient urinating in brief when standing, dependent to change, bed mobility min assist, sit to stand�mod of 2 from chair height, middle 2 with bed height raise,
pivoting to chair minimum of 1, mod of second with walker to pivot to chair with extra time and small steps. Ambulation with steps with stand�step�pivot to chair, mod assist x 2 with rolling walker. Slow movement with transfer, decreased WB
tolerance of left lower extremity, increased pain with transfer
Tobacco: Non smoker
Alcohol: Denies
Drug use: Denies
Lives with: Alone
24-hour assistance available:
Number of floors: 1, ranch
# steps to enter: 1/2 step
# steps to second floor: no
Potential First floor set up:yes, Bedroom, bathroom
Driving: no
Occupation: retired
�
Allergies:
Allergy/AdvReac Type Severity Reaction Status Date / Time
ampicillin Allergy Rash Verified 09/15/23 00:19
ibuprofen Allergy does not Verified 09/15/23 00:19
take do to
blood
thinners.
latex [Latex] Allergy SWELLING,RA Verified 09/15/23 00:19
SH
NSAIDS (Non-Steroidal Allergy does not Verified 09/15/23 00:19
Anti-Inflamma take due
to blood
thinners
Penicillins Allergy Rash Verified 09/15/23 00:19
Sulfa (Sulfonamide Allergy Rash Verified 09/15/23 00:19
Antibiotics)
Seasonal Allergies Allergy congestion Uncoded 09/15/23 00:19
Review of Systems:
Constitutional: (x) Normal _
Eye: (x) Normal _
Ear/Nose/Throat: (x) Normal _
Respiratory: (x) Normal _
Cardiovascular: (x) Normal _
Gastrointestinal: (x) diarrhea
Genitourinary: (x) Normal _
Musculoskeletal: (x) pelvic fracture, compression fractures
Integumentary: (x) Normal _
Neurologic: (x) Normal _
Psychiatric: (x) Normal _
Endocrine: (x) Normal _
Hematologic/Lymphatic: (x) Normal _
Allergic/Immunologic: (x) Normal _
Medications:
Active Current Visit Medication List
Category Date Time Status
Acetaminophen [Tylenol] Med 09/15/23 08:00 Active
1,000 mg PO TID
Apixaban [Eliquis] Med 09/15/23 08:00 Active
5 mg PO BID
Carvedilol [Coreg] Med 09/15/23 08:00 Active
12.5 mg PO BID
Cholecalciferol (Vitamin D3) [VITAMIN D3 ( Med 09/15/23 08:00 Active
cholecalciferol)]
100 mcg PO DAILY
Famotidine [Pepcid] Med 09/15/23 22:00 Active
20 mg PO HS
Ferrous Sulfate [Feosol] Med 09/15/23 08:00 Active
325 mg PO DAILY
Furosemide [Lasix] Med 09/15/23 08:00 Active
20 mg PO DAILY
Lidocaine [Lidocaine 4% Patch] Med 09/16/23 09:30 Active
2 patch TOPICAL DAILY
Morphine Sulfate Med 09/15/23 06:52 Active
2 mg IV Q4HPRN PRN
Oxycodone [Roxicodone] Med 09/15/23 06:52 Active
5 mg PO Q4HPRN PRN
Polyethylene Glycol Powder [Miralax] Med 09/15/23 06:52 Active
17 grams PO DAILYPRN PRN
Remove Patch [Remove Lidocaine Patch] Med 09/16/23 20:00 Active
See Dose Instructions REMOVE DAILY@1999
Travoprost [Travatan Z] Med 09/15/23 18:00 Active
0 drop OPHTH QPM
Vitals:
Temp Pulse Resp BP Pulse Ox
98.1 F 101 20 149/82 97
09/16/23 15:31 09/16/23 15:31 09/16/23 15:31 09/16/23 15:31 09/16/23 15:31
Height 5 ft 6 in
Actual Weight 75.886 kg
Body Mass Index (BMI) 27.0
Physical Exam:
General Appearance/Observation: Well-developed, well-nourished individual in no apparent distress.
Pain/Comfort Assessment: pelvic
Mood/Affect: Appropriate, pleasant
Integumentary/Operative Site:
�� Pressure Ulcer Evaluation: absent over heels.
��
�� Other Type of Wound: absent
�
Eyes: Conjunctiva/Lids: normal ��� Pupils: pupils equal round
Neck: No muscle spasm or tenderness
Cardiovascular: Heart: regular, no murmur
Pulses: dorsalis pedis 2+ bilaterally
Respiratory: Respiratory Effort/Chest Expansion: normal ������ Auscultation: Clear to auscultation bilaterally
Gastrointestinal: abdomen not tender, no distension, normal abdominal bowel sounds
Genitourinary: No Potter
Extremities: Edema: None Cyanosis: None Trophic changes: None
Neurology Exam:
Orientation: Alert, Oriented to self, Time, Place
Memory: Intact For immediate medical concerns
Comprehension: Intact
Two step command: Intact
Naming: Intact
Cranial Nerves:
�� CNII: Pupillary light reflex: Intact���
�� CN III, IV, : Extraocular muscles: Intact
�� CN V: Facial Sensation at Forehead: Intact, Maxilla: Intact, Mandible: Intact
�� CN VII: Facial movement: Symmetric
�� CN VIII: Hearing: Normal
�� CN IX/X: Speech & swallow: Normal, Position of Uvula: Midline
�� CN XI: Shoulder shrug: Symmetric
�� CN XII: Tongue protrusion: Midline
Sensory:
�� Light touch: Intact in bilateral upper and lower extremities
��
Reflexes:
�� Biceps: 2+ bilaterally
�� Brachioradialis: 2+ bilaterally
�� Triceps: 2+ bilaterally
�� Patellar: 2+ bilaterally
�� Clonus: None
�� Darlene: Negative bilaterally
Musculoskeletal:
Motor: (Manual muscle scale 0-5)
Muscle SA EF WE EE FF FA HF KE DF EHL PF
Right� 5 5 5 5 3+ 4 5 5 5
Left 5 5 5 5 3- 3 5 5 5
Tone: Normal in all extremities
Range of Motion: Passively within normal limits in all extremities. deferred left Lower extremity
Lab Results
Labs
WBC 6.0 10^3/uL (4.8-10.8) 09/16/23 06:42
RBC 3.26 10^6/uL (4.20-5.40) L 09/16/23 06:42
Hgb 9.9 g/dL (12.0-16.0) L 09/16/23 06:42
Hct 30.6 % (37.0-47.0) L 09/16/23 06:42
MCV 93.9 fL (81.0-99.0) 09/16/23 06:42
MCH 30.4 pg (27.0-31.0) 09/16/23 06:42
MCHC 32.4 g/dL (33.0-37.0) L 09/16/23 06:42
RDW 17.2 % (11.5-14.5) H 09/16/23 06:42
Plt Count 98 10^3/uL (130-400) L D 09/16/23 06:42
MPV 12.7 fL (7.4-10.4) H 09/16/23 06:42
Abs Immat Gran (auto) 0.2 10^3/uL (0-0.05) H 09/15/23 00:24
Absolute Neuts (auto) 7.9 10^3/uL (1.4-6.5) H 09/15/23 00:24
Absolute Lymphs (auto) 1.2 10^3/uL (1.2-3.4) 09/15/23 00:24
Absolute Monos (auto) 0.7 10^3/uL (0.1-0.6) H 09/15/23 00:24
Absolute Eos (auto) 0.1 10^3/uL (0-0.7) 09/15/23 00:24
Absolute Basos (auto) 0.1 10^3/uL (0-0.2) 09/15/23 00:24
Immature Gran % 1.9 % (0-0.5) H 09/15/23 00:24
Neutrophils % 77.8 % (42.2-75.2) H 09/15/23 00:24
Lymphocytes % 11.7 % (20.5-51.1) L 09/15/23 00:24
Monocytes % 6.8 % (1.7-9.3) 09/15/23 00:24
Eosinophils % 1.3 % (0-6) 09/15/23 00:24
Basophils % 0.5 % (0-2) 09/15/23 00:24
Nucleated RBC % 0 % 09/15/23 00:24
ESR 18 mm/hour (0-20) 09/16/23 06:42
Sodium 137 mmol/L (135-145) 09/16/23 06:42
Potassium 4.1 mmol/L (3.5-5.1) 09/16/23 06:42
Chloride 111 mmol/L (98-107) H 09/16/23 06:42
Carbon Dioxide 24 mmol/L (22-30) 09/16/23 06:42
BUN 23 mg/dl (7-17) H 09/16/23 06:42
Creatinine 0.9 mg/dL (0.6-1.0) 09/16/23 06:42
Estimated Creat Clear 47 ml/min 09/16/23 06:42
eGFR > 60.00 09/16/23 06:42
Glucose 91 mg/dl (70-99) 09/16/23 06:42
Calcium 8.6 mg/dl (8.4-10.2) 09/16/23 06:42
Total Bilirubin 0.7 mg/dl (0.2-1.3) 09/15/23 00:24
AST 30 U/L (14-36) 09/15/23 00:24
ALT 21 U/L (0-35) 09/15/23 00:24
Alkaline Phosphatase 86 U/L (38-126) 09/15/23 00:24
C-Reactive Protein 30.80 mg/L (0.0-10.00) H 09/16/23 06:42
Total Protein 6.2 g/dl (6.3-8.2) L 09/15/23 00:24
Albumin 3.6 g/dl (3.5-5.0) 09/15/23 00:24
TSH 4.07 uIU/ml (0.47-4.68) 09/16/23 06:42
TSH (Reflex) Cancelled 09/15/23 06:52
Free T4 0.98 ng/dl (0.78-2.19) 09/15/23 00:24
Immunoglobulin A 259 mg/dl (70-400) 09/16/23 06:42
Urine Color Yellow 09/15/23 08:52
Urine Clarity Clear (Clear) 09/15/23 08:52
Urine pH 5.0 (5.0-9.0) 09/15/23 08:52
Ur Specific Hinkley 1.015 (<1.030) 09/15/23 08:52
Urine Ketones Negative (Negative) 09/15/23 08:52
Ur Occult Blood Reflex 4+ (Negative) A 09/15/23 08:52
Urine Nitrite (Reflex) Negative (Negative) 09/15/23 08:52
Urine Bilirubin Negative (Negative) 09/15/23 08:52
Urine Urobilinogen Negative (Neg - 1+) 09/15/23 08:52
Leukocyte Esterase Rfl Negative (Negative) 09/15/23 08:52
Urine RBC 7-10 /HPF (0-2) A 09/15/23 08:52
Urine WBC (Reflex) 0-2 /HPF (0-5) 09/15/23 08:52
Ur Squamous Epith Cells 11-15 /LPF (Few) 09/15/23 08:52
Ur Urothelial Cells 6-10 /LPF (FEW) 09/15/23 08:52
Amorphous Crystals Seen 09/15/23 08:52
Urine Bacteria (Reflex) Few (Negative) A 09/15/23 08:52
Urine Mucus Few 09/15/23 08:52
Urine Glucose Negative (Negative) 09/15/23 08:52
Urine Albumin (Reflex) Negative (Neg - Trace) 09/15/23 08:52
POC Glucose 109 mg/dl (70-99) H 09/15/23 07:52
�
Diagnostic Results: as per HPI
Assessment Pt is a 78 year old female with PMH of (small bowel resection for ileitis in her 20's, pernicious anemia, iron deficiency, Schatzki's ring with dilation, PE on Eliquis, osteoporosis with vert fractures,� renal stones, MR, PUD who was
admitted after she tripped and fell over her walker just prior to arrival on 09/15/2023.� Found to have left pelvic fracture on CT scan. H/o vertebral compression fractures due to osteoporosis
Plan
PT/OT to increase independence with ADLs, improve balance, coordination, endurance, strength, mobility, community reintegration, decreased burden of care on others and family education.
Left pelvic fracture status post fall: Pain control, PT/OT
Falls: Likely multifactorial
HTN: Carvedilol, Lasix monitor closely
HLD: Statin
Coronary artery disease : Aspirin, statin, beta-angelique
Vertebral Compression fractures: Due to osteoporosis: Oxycodone PRN, Tramadol 50- q 6 hours, ice pack, PT, treatment for osteoporosis, Lidoderm patch, Tylenol 1000 tid. Verteboplasty if necessary.
Bilateral lower extremity edema: Consider TEDS as able. Increased fluid will cause more force requirement to move lower extremities which requires more strength and increases fatigue.
Anemia: Likely multifactorial.�Ferrous sulfate. Continue to monitor. (hgb 9.9)
Thrombocytopenia: Continue to monitor. (98) With platelets less than 50,000 recommend keeping therapies to bedside. If platelets less than 20,000 will use further caution with activity levels and hold therapy for platelets less than 10,000.
Psych: Psychology consult.� Monitor mood,
Skin: monitor for pressure sores/rashes/lesions.
Pain: acetaminophen, oxycodone as needed, Lidoderm patch. Switch IV pain medicine to PO to decrease potential infection as tolerated
Bowel: Colace and Senna, PRN bisacodyl.
Bladder: Time void, PVRs, PRN straight cath.
GI Prophylaxis: Pantoprazole, pepcid
DVT Prophylaxis/h/o PE: Eliquis
Pulmonary: Incentive spirometry
Safety: Continue to reinforce assistance with all transfers.
Code Status:� Full code
Dispo (date/plan/equipment needs): Home with family care.� Social history reviewed.
Pulmonary: Incentive spirometry
Functional and Medical Goals: Modified Independent with ADL�s, ambulation, transfers
Discharge Destination: SNF
Summary of recommendations:
- Discharge Destination: SNF
Left pelvic fracture status post fall: Patient would benefit from PT/OT in a SNF instead of acute inpatient rehabilitation for her pelvic fracture to help increase independence with ADLs, improve balance, coordination, endurance, strength, mobility.
Pain: Continue oxycodone, Tylenol 1000 tid, tramadol 50mg q 6 hours prn, Lidoderm patch, Ice pack. Switch IV pain medicine to PO as tolerated to decrease potential for infection
DVT Prophylaxis/h/o PE: Eliquis, mechanicals
GI Prophylaxis: Pantoprazole, pepcid
Bowel: Colace and Senna, PRN bisacodyl po or suppository for constipation if needed
Thank you for allowing me to care for your patient. Please contact me with any questions or concerns.
This note was dictated using a voice recognition system. Please excuse any typographical errors from early learning teacher. If you believe there are any discrepancies, please notify our office.

Documented by User: Mak Arredondo MD 09/17/23 17:25
Consultation - Medical
-
Referring Provider: Nori Woods
Chief Complaint: Pelvic pain
History of Present Illness: Pt is a 78 year old female with PMH of (small bowel resection for ileitis in her 20's, pernicious anemia, iron deficiency, Schatzki's ring with dilation, PE on Eliquis, osteoporosis with vert fractures,� renal stones,
MR, PUD who was admitted after she tripped and fell over her walker just prior to arrival.� She reports she fell onto her left side and says severe pain in the left buttock area.� She did not hit her head.� She denies neck pain and back pain. CT
scan- with subtle nondisplaced fracture of the left parasymphyseal pubic body extending into the left superior pubic ramus and Hypertrophic degenerative changes are noted about both hips on xray. H/o compresion fractures due to Severe osteoporosis.
She has been on a regimen of pain medications at home with little improvement. Patient was treated for UTI with 10 days of p.o. antibiotic as an outpatient. She just completed this course.
Past Medical History:Asthma, PE, renal stones, b12 deficiency, Iron deficiency, schatzki's ring with dilation, osteopenia, MR, basal cell CA,, glaucoma, PUD, mediastinal lymphadenopathy, mitral insufficiency, comp fx, colon polyps, covid 19, )
Procedure History: �Bowel Resection, Cholecystectomy, varicose vein surgery, kidney stone removal with kidney rupture, tubal ligation, Mohs�surgery
Family History: Diabetes, hypertension, CAD
Social History:
Functional Level Premorbidly: Independent with all activities. Use of Rolling Walker
Functional Level Currently: Toileting�dependent, lower extremity self-care�dependent, patient urinating in brief when standing, dependent to change, bed mobility min assist, sit to stand�mod of 2 from chair height, middle 2 with bed height raise,
pivoting to chair minimum of 1, mod of second with walker to pivot to chair with extra time and small steps. Ambulation with steps with stand�step�pivot to chair, mod assist x 2 with rolling walker. Slow movement with transfer, decreased WB
tolerance of left lower extremity, increased pain with transfer
Tobacco: Non smoker
Alcohol: Denies
Drug use: Denies
Lives with: Alone
24-hour assistance available:
Number of floors: 1, ranch
# steps to enter: 1/2 step
# steps to second floor: no
Potential First floor set up:yes, Bedroom, bathroom
Driving: no
Occupation: retired
�
Allergies:
Allergy/AdvReac Type Severity Reaction Status Date / Time
ampicillin Allergy Rash Verified 09/15/23 00:19
ibuprofen Allergy does not Verified 09/15/23 00:19
take do to
blood
thinners.
latex [Latex] Allergy SWELLING,RA Verified 09/15/23 00:19
SH
NSAIDS (Non-Steroidal Allergy does not Verified 09/15/23 00:19
Anti-Inflamma take due
to blood
thinners
Penicillins Allergy Rash Verified 09/15/23 00:19
Sulfa (Sulfonamide Allergy Rash Verified 09/15/23 00:19
Antibiotics)
Seasonal Allergies Allergy congestion Uncoded 09/15/23 00:19
Review of Systems:
Constitutional: (x) Normal _
Eye: (x) Normal _
Ear/Nose/Throat: (x) Normal _
Respiratory: (x) Normal _
Cardiovascular: (x) Normal _
Gastrointestinal: (x) diarrhea
Genitourinary: (x) Normal _
Musculoskeletal: (x) pelvic fracture, compression fractures
Integumentary: (x) Normal _
Neurologic: (x) Normal _
Psychiatric: (x) Normal _
Endocrine: (x) Normal _
Hematologic/Lymphatic: (x) Normal _
Allergic/Immunologic: (x) Normal _
Medications:
Active Current Visit Medication List
Category Date Time Status
Acetaminophen [Tylenol] Med 09/15/23 08:00 Active
1,000 mg PO TID
Apixaban [Eliquis] Med 09/15/23 08:00 Active
5 mg PO BID
Carvedilol [Coreg] Med 09/15/23 08:00 Active
12.5 mg PO BID
Cholecalciferol (Vitamin D3) [VITAMIN D3 ( Med 09/15/23 08:00 Active
cholecalciferol)]
100 mcg PO DAILY
Famotidine [Pepcid] Med 09/15/23 22:00 Active
20 mg PO HS
Ferrous Sulfate [Feosol] Med 09/15/23 08:00 Active
325 mg PO DAILY
Furosemide [Lasix] Med 09/15/23 08:00 Active
20 mg PO DAILY
Lidocaine [Lidocaine 4% Patch] Med 09/16/23 09:30 Active
2 patch TOPICAL DAILY
Morphine Sulfate Med 09/15/23 06:52 Active
2 mg IV Q4HPRN PRN
Oxycodone [Roxicodone] Med 09/15/23 06:52 Active
5 mg PO Q4HPRN PRN
Polyethylene Glycol Powder [Miralax] Med 09/15/23 06:52 Active
17 grams PO DAILYPRN PRN
Remove Patch [Remove Lidocaine Patch] Med 09/16/23 20:00 Active
See Dose Instructions REMOVE DAILY@1999
Travoprost [Travatan Z] Med 09/15/23 18:00 Active
0 drop OPHTH QPM
Vitals:
Temp Pulse Resp BP Pulse Ox
98.1 F 101 20 149/82 97
09/16/23 15:31 09/16/23 15:31 09/16/23 15:31 09/16/23 15:31 09/16/23 15:31
Height 5 ft 6 in
Actual Weight 75.886 kg
Body Mass Index (BMI) 27.0
Physical Exam:
General Appearance/Observation: Well-developed, well-nourished individual in no apparent distress.
Pain/Comfort Assessment: pelvic
Mood/Affect: Appropriate, pleasant
Integumentary/Operative Site:
�� Pressure Ulcer Evaluation: absent over heels.
��
�� Other Type of Wound: absent
�
Eyes: Conjunctiva/Lids: normal ��� Pupils: pupils equal round
Neck: No muscle spasm or tenderness
Cardiovascular: Heart: regular, no murmur
Pulses: dorsalis pedis 2+ bilaterally
Respiratory: Respiratory Effort/Chest Expansion: normal ������ Auscultation: Clear to auscultation bilaterally
Gastrointestinal: abdomen not tender, no distension, normal abdominal bowel sounds
Genitourinary: No Potter
Extremities: Edema: None Cyanosis: None Trophic changes: None
Neurology Exam:
Orientation: Alert, Oriented to self, Time, Place
Memory: Intact For immediate medical concerns
Comprehension: Intact
Two step command: Intact
Naming: Intact
Cranial Nerves:
�� CNII: Pupillary light reflex: Intact���
�� CN III, IV, : Extraocular muscles: Intact
�� CN V: Facial Sensation at Forehead: Intact, Maxilla: Intact, Mandible: Intact
�� CN VII: Facial movement: Symmetric
�� CN VIII: Hearing: Normal
�� CN IX/X: Speech & swallow: Normal, Position of Uvula: Midline
�� CN XI: Shoulder shrug: Symmetric
�� CN XII: Tongue protrusion: Midline
Sensory:
�� Light touch: Intact in bilateral upper and lower extremities
��
Reflexes:
�� Biceps: 2+ bilaterally
�� Brachioradialis: 2+ bilaterally
�� Triceps: 2+ bilaterally
�� Patellar: 2+ bilaterally
�� Clonus: None
�� Darlene: Negative bilaterally
Musculoskeletal:
Motor: (Manual muscle scale 0-5)
Muscle SA EF WE EE FF FA HF KE DF EHL PF
Right� 5 5 5 5 3+ 4 5 5 5
Left 5 5 5 5 3- 3 5 5 5
Tone: Normal in all extremities
Range of Motion: Passively within normal limits in all extremities. deferred left Lower extremity
Lab Results
Labs
WBC 6.0 10^3/uL (4.8-10.8) 09/16/23 06:42
RBC 3.26 10^6/uL (4.20-5.40) L 09/16/23 06:42
Hgb 9.9 g/dL (12.0-16.0) L 09/16/23 06:42
Hct 30.6 % (37.0-47.0) L 09/16/23 06:42
MCV 93.9 fL (81.0-99.0) 09/16/23 06:42
MCH 30.4 pg (27.0-31.0) 09/16/23 06:42
MCHC 32.4 g/dL (33.0-37.0) L 09/16/23 06:42
RDW 17.2 % (11.5-14.5) H 09/16/23 06:42
Plt Count 98 10^3/uL (130-400) L D 09/16/23 06:42
MPV 12.7 fL (7.4-10.4) H 09/16/23 06:42
Abs Immat Gran (auto) 0.2 10^3/uL (0-0.05) H 09/15/23 00:24
Absolute Neuts (auto) 7.9 10^3/uL (1.4-6.5) H 09/15/23 00:24
Absolute Lymphs (auto) 1.2 10^3/uL (1.2-3.4) 09/15/23 00:24
Absolute Monos (auto) 0.7 10^3/uL (0.1-0.6) H 09/15/23 00:24
Absolute Eos (auto) 0.1 10^3/uL (0-0.7) 09/15/23 00:24
Absolute Basos (auto) 0.1 10^3/uL (0-0.2) 09/15/23 00:24
Immature Gran % 1.9 % (0-0.5) H 09/15/23 00:24
Neutrophils % 77.8 % (42.2-75.2) H 09/15/23 00:24
Lymphocytes % 11.7 % (20.5-51.1) L 09/15/23 00:24
Monocytes % 6.8 % (1.7-9.3) 09/15/23 00:24
Eosinophils % 1.3 % (0-6) 09/15/23 00:24
Basophils % 0.5 % (0-2) 09/15/23 00:24
Nucleated RBC % 0 % 09/15/23 00:24
ESR 18 mm/hour (0-20) 09/16/23 06:42
Sodium 137 mmol/L (135-145) 09/16/23 06:42
Potassium 4.1 mmol/L (3.5-5.1) 09/16/23 06:42
Chloride 111 mmol/L (98-107) H 09/16/23 06:42
Carbon Dioxide 24 mmol/L (22-30) 09/16/23 06:42
BUN 23 mg/dl (7-17) H 09/16/23 06:42
Creatinine 0.9 mg/dL (0.6-1.0) 09/16/23 06:42
Estimated Creat Clear 47 ml/min 09/16/23 06:42
eGFR > 60.00 09/16/23 06:42
Glucose 91 mg/dl (70-99) 09/16/23 06:42
Calcium 8.6 mg/dl (8.4-10.2) 09/16/23 06:42
Total Bilirubin 0.7 mg/dl (0.2-1.3) 09/15/23 00:24
AST 30 U/L (14-36) 09/15/23 00:24
ALT 21 U/L (0-35) 09/15/23 00:24
Alkaline Phosphatase 86 U/L (38-126) 09/15/23 00:24
C-Reactive Protein 30.80 mg/L (0.0-10.00) H 09/16/23 06:42
Total Protein 6.2 g/dl (6.3-8.2) L 09/15/23 00:24
Albumin 3.6 g/dl (3.5-5.0) 09/15/23 00:24
TSH 4.07 uIU/ml (0.47-4.68) 09/16/23 06:42
TSH (Reflex) Cancelled 09/15/23 06:52
Free T4 0.98 ng/dl (0.78-2.19) 09/15/23 00:24
Immunoglobulin A 259 mg/dl (70-400) 09/16/23 06:42
Urine Color Yellow 09/15/23 08:52
Urine Clarity Clear (Clear) 09/15/23 08:52
Urine pH 5.0 (5.0-9.0) 09/15/23 08:52
Ur Specific Hinkley 1.015 (<1.030) 09/15/23 08:52
Urine Ketones Negative (Negative) 09/15/23 08:52
Ur Occult Blood Reflex 4+ (Negative) A 09/15/23 08:52
Urine Nitrite (Reflex) Negative (Negative) 09/15/23 08:52
Urine Bilirubin Negative (Negative) 09/15/23 08:52
Urine Urobilinogen Negative (Neg - 1+) 09/15/23 08:52
Leukocyte Esterase Rfl Negative (Negative) 09/15/23 08:52
Urine RBC 7-10 /HPF (0-2) A 09/15/23 08:52
Urine WBC (Reflex) 0-2 /HPF (0-5) 09/15/23 08:52
Ur Squamous Epith Cells 11-15 /LPF (Few) 09/15/23 08:52
Ur Urothelial Cells 6-10 /LPF (FEW) 09/15/23 08:52
Amorphous Crystals Seen 09/15/23 08:52
Urine Bacteria (Reflex) Few (Negative) A 09/15/23 08:52
Urine Mucus Few 09/15/23 08:52
Urine Glucose Negative (Negative) 09/15/23 08:52
Urine Albumin (Reflex) Negative (Neg - Trace) 09/15/23 08:52
POC Glucose 109 mg/dl (70-99) H 09/15/23 07:52
�
Diagnostic Results: as per HPI
Assessment Pt is a 78 year old female with PMH of (small bowel resection for ileitis in her 20's, pernicious anemia, iron deficiency, Schatzki's ring with dilation, PE on Eliquis, osteoporosis with vert fractures,� renal stones, MR, PUD who was
admitted after she tripped and fell over her walker just prior to arrival on 09/15/2023.� Found to have left pelvic fracture on CT scan. H/o vertebral compression fractures due to osteoporosis
Plan
PT/OT to increase independence with ADLs, improve balance, coordination, endurance, strength, mobility, community reintegration, decreased burden of care on others and family education.
Left pelvic fracture status post fall: Pain control, PT/OT
Falls: Likely multifactorial
HTN: Carvedilol, Lasix monitor closely
HLD: Statin
Coronary artery disease : Aspirin, statin, beta-angelique
Vertebral Compression fractures: Due to osteoporosis: Oxycodone PRN, Tramadol 50- q 6 hours, ice pack, PT, treatment for osteoporosis, Lidoderm patch, Tylenol 1000 tid. Verteboplasty if necessary.
Bilateral lower extremity edema: Consider TEDS as able. Increased fluid will cause more force requirement to move lower extremities which requires more strength and increases fatigue.
Anemia: Likely multifactorial.�Ferrous sulfate. Continue to monitor. (hgb 9.9)
Thrombocytopenia: Continue to monitor. (98) With platelets less than 50,000 recommend keeping therapies to bedside. If platelets less than 20,000 will use further caution with activity levels and hold therapy for platelets less than 10,000.
Psych: Psychology consult.� Monitor mood,
Skin: monitor for pressure sores/rashes/lesions.
Pain: acetaminophen, oxycodone as needed, Lidoderm patch. Switch IV pain medicine to PO to decrease potential infection as tolerated
Bowel: Colace and Senna, PRN bisacodyl.
Bladder: Time void, PVRs, PRN straight cath.
GI Prophylaxis: Pantoprazole, pepcid
DVT Prophylaxis/h/o PE: Eliquis
Pulmonary: Incentive spirometry
Safety: Continue to reinforce assistance with all transfers.
Code Status:� Full code
Dispo (date/plan/equipment needs): Home with family care.� Social history reviewed.
Pulmonary: Incentive spirometry
Functional and Medical Goals: Modified Independent with ADL�s, ambulation, transfers
Discharge Destination: SNF
Summary of recommendations:
- Discharge Destination: SNF
Left pelvic fracture status post fall: Patient would benefit from PT/OT in a SNF instead of acute inpatient rehabilitation for her pelvic fracture to help increase independence with ADLs, improve balance, coordination, endurance, strength, mobility.
Pain: Continue oxycodone, Tylenol 1000 tid, tramadol 50mg q 6 hours prn, Lidoderm patch, Ice pack. Switch IV pain medicine to PO as tolerated to decrease potential for infection
DVT Prophylaxis/h/o PE: Eliquis, mechanical
GI Prophylaxis: Pantoprazole, pepcid
Bowel: Colace and Senna, PRN bisacodylPO or suppository for constipation if needed
Attending Statement:
I saw and examined the patient today.� Reviewed care plan with patient and physician administrative sales assistant.� I agree with the above subjective and physical exam, and plan as documented.
Thank you for allowing me to care for your patient. Please contact me with any questions or concerns.
[2023-09-16] MEDS: TRAVATAN Z 1 DROP OPHTH (18:24)
[2023-09-16] MEDS: PEPCID PO (22:04)
[2023-09-17] MEDS: ROXICODONE 5 MG PO ×3 (05:46→16:13)
[2023-09-17 07:30] VITALS: BP 146/87
[2023-09-17] MEDS: COREG 12.5 MG PO (08:33)
[2023-09-17] MEDS: LASIX 20 MG PO (08:33)
[2023-09-17] MEDS: ELIQUIS 5 MG PO (08:33)
[2023-09-17] MEDS: TYLENOL 1000 MG PO ×2 (08:33→16:16)
[2023-09-17] MEDS: LIDOCAINE 4% PATCH 2 PATCH TOPICAL (08:34)
[2023-09-17] MEDS: FEOSOL 325 MG PO (08:34)
[2023-09-17] MEDS: VITAMIN D3 (cholecalciferol) 100 MCG PO (08:34)
[2023-09-17 08:58] LABS: Hematocrit 29.7 % (37.0-47.0); Hemoglobin 9.6 g/dL (12.0-16.0); Mean Corp Hgb Conc. 32.3 g/dL (33.0-37.0); Mean Corpuscular Hgb 30.1 pg (27.0-31.0); Mean Corpuscular Volume 93.1 fL (81.0-99.0); Mean Platelet Volume 13.1 fL (7.4-10.4); Platelet Count 94 10^3/uL (130-400); Red Blood Cell Count 3.19 10^6/uL (4.20-5.40); Red Cell Dist. Width 17.2 % (11.5-14.5); White Blood Cell Count 6.8 10^3/uL (4.8-10.8)
[2023-09-17 09:00] VITALS: BP 108/65; PULSE 112; O2SAT 95
--- NOTE | 2023-09-17 09:20 | W.PN.HOSP.TC ---
Today's Communication/Plan
-
see bold
Assessment / Plan
Assessment / Plan
78y F with PMH significant for hypertension, osteoporosis and prior PE who presented to ED complaining of fall at home.�Patient states that she ambulates with a walker at baseline. In the evening of admission, she was walking and went to turn
when she leaned too far to the L and fell to the side.� She denies any prodrome of lightheadedness, dizziness, chest pain, etc prior to the fall.� She denies striking her head.�No LOC.
Patient landed on her L sided and noted immediate pain in the L groin region.� She presented to ED for evaluation where imaging reveals evidence of a L pelvic fracture.
Patient notes that she recently suffered vertebral compression fractures due to severe osteoporosis (no fall / injury).�She has been on a regimen of pain medications at home - with little improvement in her discomfort.
In addition, she was started on Lasix in July for LE edema.�She states that she stopped taking this about 1 week ago due to issues with urinary frequency.
Patient was treated for a UTI with 10 days of PO abx as an outpatient.� She just completed this course; however, she continues to complain of urinary frequency and dysuria.
No fevers / chills. No chest pain or dyspnea.
Gen: NAD, AAOx3.
Eyes: EOMI, PERRLA, no scleral icterus.
Neck: supple.
CV: RRR, +S1/S2, no m/r/g.
Resp: CTAB, no rales, wheezes, or rhonchi.
Abd: +BS, soft, NT, ND
Skin: No rashes.
Neuro: CN 2-12 intact, non-focal.
Psych: Normal mood and affect.
Acute L pubic symphysis/superior pubic ramus fracture due to mechanical fall:
-pain control, add Neurontin
-PT/OT
Vertebral Compression Fractures:
-likely due to osteoporosis, nontraumatic
-pain control, add Neurontin
-PT/OT
Other problems:
Essential Hypertension: cont Coreg
Chronic HFpEF: cont Lasix/Coreg
h/o PE: Cont Eliquis
Chronic Anemia: Hb stable
FULL/Eliquis
Medically cleared for discharge. Case management aware.
Total time spent on d/c = 31 min. This included today's physical exam, progress note, review of laboratory and diagnostic data, preparation of discharge documents and prescriptions, and discussions about the pt's hospital course and discharge plan
with the patient and other remote medical coder involved in the patient's care.
Anticipated Discharge: Within 24 hours
Subjective/Interval History
-
Date of Service: September 17, 2023
Objective Data
-
Labs:
Laboratory Results
09/17/23
08:27
WBC 6.8
Hgb 9.6 L
Hct 29.7 L
Plt Count 94 L
Sodium Pending
Potassium Pending
Chloride Pending
Carbon Dioxide Pending
BUN Pending
Creatinine Pending
Glucose Pending
Calcium Pending
Vital Signs:
Vital Signs
Temp Pulse Resp BP Pulse Ox
99.6 F 107 20 146/87 95
09/17/23 07:30 09/17/23 07:30 09/17/23 07:30 09/17/23 07:30 09/17/23 07:30
I&O
09/16/23 09/17/23 09/18/23
06:59 06:59 06:59
Intake Total 720 / 720
Output Total 50 / 50
Balance 670 / 670
[2023-09-17 09:25] LABS: Blood Urea Nitrogen 22 mg/dl (7-17); Calcium 8.4 mg/dl (8.4-10.2); Carbon Dioxide 23 mmol/L (22-30); Chloride 105 mmol/L (98-107); Estimated Creatinine Clearance 47 ml/min; Glucose 113 mg/dl (70-99); Potassium 3.5 mmol/L (3.5-5.1); Sodium 138 mmol/L (135-145); eGFR > 60.00
[2023-09-17 09:32] VITALS: BP 108/65
--- NOTE | 2023-09-17 10:19 | CM ---
Addendum entered by Isamar Salomon 09/17/23 14:26:
Auth received patient has been approved for 7 days skilled level one 09/17 to 09/23, Ref # [id number], Ambulance Auth for Acute Care Ref # [id number].
Original Note:
Patient is for skilled placement, watch case polisher reviewed options and patient and family have selected [facility], referral sent to [facility] and they can accept patient today, 4th floor. Patient will need Auth.
[place] [facility]
Report [id number]
[2023-09-17 15:33] VITALS: BP 128/73
[2023-09-17] MEDS: TRAVATAN Z 1 DROP OPHTH (16:12)
[2023-09-17] MEDS: NEURONTIN 100 MG PO (16:16)
[2023-09-18 23:14] LABS: Endomysial IgA Antibody Titer <1:10 (<1:10)
[2023-09-19 02:02] LABS: tTG IgA Antibody <1.02 FLU (0.00-4.99)
== END 2023-09-17 17:44 ==
LOC: 4 WEST ACU 06:03
PROVIDERS: Internal Medicine; Student in an Organized Health Care Education/Training Program; ADMITTING PHYSICIAN Hospitalist; ATTENDING PHYSICIAN Internal Medicine; CONSULT PHYSICIAN Internal Medicine Gastroenterology; CONSULT PHYSICIAN Physical Medicine & Rehabilitation; EMERGENCY PHYSICIAN Emergency Medicine; FAMILY PHYSICIAN Family Medicine
DX: M80.0B2A Age-related osteoporosis with current pathological fracture, left pelvis, initial encounter for fracture (principal); M25.552 Pain in left hip; M80.08XA Age-related osteoporosis with current pathological fracture, vertebra(e), initial encounter for fracture; J45.909 Unspecified asthma, uncomplicated; I11.0 Hypertensive heart disease with heart failure; W01.0XXA Fall on same level from slipping, tripping and stumbling without subsequent striking against object, initial encounter; Y93.01 Activity, walking, marching and hiking; Y92.009 Unspecified place in unspecified non-institutional (private) residence as the place of occurrence of the external cause; I50.32 Chronic diastolic (congestive) heart failure; K50.00 Crohn's disease of small intestine without complications; K21.9 Gastro-esophageal reflux disease without esophagitis; R19.7 Diarrhea, unspecified; D51.0 Vitamin B12 deficiency anemia due to intrinsic factor deficiency; D50.9 Iron deficiency anemia, unspecified; M19.90 Unspecified osteoarthritis, unspecified site; Z90.49 Acquired absence of other specified parts of digestive tract; Z88.0 Allergy status to penicillin; Z86.711 Personal history of pulmonary embolism; Z87.442 Personal history of urinary calculi; Z88.2 Allergy status to sulfonamides; Z88.8 Allergy status to other drugs, medicaments and biological substances; Z88.6 Allergy status to analgesic agent; Z60.8 Other problems related to social environment; Z91.040 Latex allergy status; Z87.11 Personal history of peptic ulcer disease; Z79.01 Long term (current) use of anticoagulants
CPT/HCPCS: 72192; 73502; 80048; 80053; 81003; 81015; 82784; 82962; 83516; 84439; 84443; 85025; 85027; 85652; 86140; 86231; 93005; 96374; 96376; 97116; 97163; 97530; 97535; 99285; G0378

== ENCOUNTER → 2023-09-21 10:48 | Outpatient (REF) | payer OTHER, SELFPAY ==
[2023-09-21 11:37] LABS: % Basophils 0.5 % (0-2); % Eosinophils 1.1 % (0-6); % Immature Granulocytes 1.8 % (0-0.5); % Lymphocytes 8.8 % (20.5-51.1); % Monocytes 7.3 % (1.7-9.3); % Neutrophils 80.5 % (42.2-75.2); Absolute Basophils 0.1 10^3/uL (0-0.2); Absolute Eosinophils 0.1 10^3/uL (0-0.7); Absolute Immature Granulocytes 0.2 10^3/uL (0-0.05); Absolute Monocytes 0.8 10^3/uL (0.1-0.6); Absolute Neutrophils 8.8 10^3/uL (1.4-6.5); Hematocrit 24.7 % (37.0-47.0); Hemoglobin 8.4 g/dL (12.0-16.0); Mean Corpuscular Volume 91.1 fL (81.0-99.0); Mean Platelet Volume 10.2 fL (7.4-10.4); Nucleated Red Blood Cells % 0 %; Platelet Count 348 10^3/uL (130-400); Red Blood Cell Count 2.71 10^6/uL (4.20-5.40); Red Cell Dist. Width 17.2 % (11.5-14.5); White Blood Cell Count 10.9 10^3/uL (4.8-10.8)
[2023-09-21 11:58] LABS: Blood Urea Nitrogen 16 mg/dl (7-17); Calcium 8.1 mg/dl (8.4-10.2); Carbon Dioxide 24 mmol/L (22-30); Chloride 102 mmol/L (98-107); Glucose 89 mg/dl (70-99); Sodium 128 mmol/L (135-145); eGFR > 60.00
[2023-09-21 12:26] LABS: Urine Albumin Trace (Neg - Trace); Urine Bilirubin Negative (Negative); Urine Character Clear (Clear); Urine Color Yellow; Urine Glucose Negative (Negative); Urine Ketone Negative (Negative); Urine Leukocyte 2+ (Negative); Urine Nitrite Negative (Negative); Urine Occult Blood Trace (Negative); Urine Urobilinogen Negative (Neg - 1+)
[2023-09-21 12:38] LABS: Urine Bacteria Few (Negative); Urine Calcium Oxalate Crystals Present; Urine Squamous Cell >30 /LPF (Few)
[2023-09-21 12:39] LABS: Urine Red Blood Cell 0-2 /HPF (0-2)
== END ==
LOC: OLABP 10:48
PROVIDERS: ATTENDING PHYSICIAN Family Medicine
DX: I34.0 Nonrheumatic mitral (valve) insufficiency (principal); M62.81 Muscle weakness (generalized); Z87.311 Personal history of (healed) other pathological fracture; I50.9 Heart failure, unspecified
CPT/HCPCS: 36415; 80048; 81003; 81015; 85025; 87086

== ENCOUNTER → 2023-09-28 11:22 | Outpatient (REF) | payer OTHER, SELFPAY ==
[2023-09-28 12:09] LABS: % Basophils 0.9 % (0-2); % Immature Granulocytes 0.9 % (0-0.5); % Lymphocytes 25.9 % (20.5-51.1); % Monocytes 9.8 % (1.7-9.3); % Neutrophils 57.5 % (42.2-75.2); Absolute Eosinophils 0.2 10^3/uL (0-0.7); Absolute Lymphocytes 1.1 10^3/uL (1.2-3.4); Absolute Monocytes 0.4 10^3/uL (0.1-0.6); Absolute Neutrophils 2.5 10^3/uL (1.4-6.5); Hematocrit 28.3 % (37.0-47.0); Hemoglobin 9.2 g/dL (12.0-16.0); Mean Corp Hgb Conc. 32.5 g/dL (33.0-37.0); Mean Corpuscular Hgb 30.6 pg (27.0-31.0); Mean Platelet Volume 13.1 fL (7.4-10.4); Nucleated Red Blood Cells % 0 %; Platelet Count 158 10^3/uL (130-400); Red Blood Cell Count 3.01 10^6/uL (4.20-5.40); White Blood Cell Count 4.4 10^3/uL (4.8-10.8)
[2023-09-28 12:14] LABS: ALT (SGPT) 11 U/L (0-35); AST (SGOT) 19 U/L (14-36); Albumin 2.6 g/dl (3.5-5.0); Alkaline Phosphatase 126 U/L (38-126); Blood Urea Nitrogen 30 mg/dl (7-17); Calcium 8.8 mg/dl (8.4-10.2); Carbon Dioxide 20 mmol/L (22-30); Chloride 115 mmol/L (98-107); Glucose 95 mg/dl (70-99); Potassium 3.3 mmol/L (3.5-5.1); Sodium 142 mmol/L (135-145); Total Bilirubin 0.6 mg/dl (0.2-1.3); Total Protein 4.9 g/dl (6.3-8.2); eGFR 57.31
== END ==
LOC: OLABP 11:22
PROVIDERS: ATTENDING PHYSICIAN Family Medicine
DX: M62.81 Muscle weakness (generalized) (principal); Z87.311 Personal history of (healed) other pathological fracture; I50.9 Heart failure, unspecified; I77.0 Arteriovenous fistula, acquired; I34.0 Nonrheumatic mitral (valve) insufficiency
CPT/HCPCS: 36415; 80053; 85025

== ENCOUNTER → 2023-10-04 11:57 | Outpatient (REF) | payer OTHER, SELFPAY ==
[2023-10-04 12:12] LABS: Urine Albumin 1+ (Neg - Trace); Urine Bilirubin Negative (Negative); Urine Character Very Cloudy (Clear); Urine Color Brown; Urine Glucose Negative (Negative); Urine Ketone Negative (Negative); Urine Leukocyte 1+ (Negative); Urine Nitrite Positive (Negative); Urine Occult Blood 4+ (Negative); Urine Urobilinogen Negative (Neg - 1+)
[2023-10-04 12:23] LABS: Urine Red Blood Cell >100 /HPF (0-2)
[2023-10-04 12:24] LABS: Urine Bacteria Few (Negative)
== END ==
LOC: OLABP 11:57
PROVIDERS: ATTENDING PHYSICIAN Family Medicine
DX: M62.81 Muscle weakness (generalized) (principal); Z87.311 Personal history of (healed) other pathological fracture; I50.9 Heart failure, unspecified; I11.0 Hypertensive heart disease with heart failure; I34.0 Nonrheumatic mitral (valve) insufficiency; S32.82XD Multiple fractures of pelvis without disruption of pelvic ring, subsequent encounter for fracture with routine healing; W19.XXXD Unspecified fall, subsequent encounter
CPT/HCPCS: 81003; 81015; 87086

== ENCOUNTER → 2023-10-05 10:12 | Outpatient (REF) | payer OTHER, SELFPAY ==
[2023-10-05 11:35] LABS: % Basophils 0.8 % (0-2); % Eosinophils 3.8 % (0-6); % Immature Granulocytes 0.4 % (0-0.5); % Lymphocytes 18.8 % (20.5-51.1); % Monocytes 11.5 % (1.7-9.3); % Neutrophils 64.7 % (42.2-75.2); Absolute Eosinophils 0.2 10^3/uL (0-0.7); Absolute Monocytes 0.6 10^3/uL (0.1-0.6); Absolute Neutrophils 3.4 10^3/uL (1.4-6.5); Hematocrit 29.2 % (37.0-47.0); Hemoglobin 9.4 g/dL (12.0-16.0); Mean Corp Hgb Conc. 32.2 g/dL (33.0-37.0); Mean Corpuscular Hgb 30.7 pg (27.0-31.0); Mean Corpuscular Volume 95.4 fL (81.0-99.0); Nucleated Red Blood Cells % 0 %; Red Blood Cell Count 3.06 10^6/uL (4.20-5.40); Red Cell Dist. Width 17.6 % (11.5-14.5); White Blood Cell Count 5.2 10^3/uL (4.8-10.8)
[2023-10-05 11:50] LABS: Blood Urea Nitrogen 32 mg/dl (7-17); Calcium 8.7 mg/dl (8.4-10.2); Carbon Dioxide 17 mmol/L (22-30); Chloride 110 mmol/L (98-107); Glucose 90 mg/dl (70-99); Potassium 4.5 mmol/L (3.5-5.1); Sodium 135 mmol/L (135-145)
[2023-10-05 13:46] LABS: Mean Platelet Volume 13.4 fL (7.4-10.4); Platelet Count 126 10^3/uL (130-400)
== END ==
LOC: OLABP 10:12
PROVIDERS: ATTENDING PHYSICIAN Student in an Organized Health Care Education/Training Program
DX: Z87.311 Personal history of (healed) other pathological fracture (principal); I50.9 Heart failure, unspecified; I11.0 Hypertensive heart disease with heart failure; I34.0 Nonrheumatic mitral (valve) insufficiency; E61.1 Iron deficiency; D51.9 Vitamin B12 deficiency anemia, unspecified; M85.80 Other specified disorders of bone density and structure, unspecified site; H40.9 Unspecified glaucoma; Z87.11 Personal history of peptic ulcer disease; S32.82XD Multiple fractures of pelvis without disruption of pelvic ring, subsequent encounter for fracture with routine healing; W19.XXXD Unspecified fall, subsequent encounter; R26.2 Difficulty in walking, not elsewhere classified; M62.81 Muscle weakness (generalized)
CPT/HCPCS: 36415; 80048; 85025

== ENCOUNTER → 2023-11-06 12:51 | Outpatient (REF) | payer OTHER, SELFPAY | LOC: MRI 3T 12:51 | PROVIDERS: ATTENDING PHYSICIAN Orthopaedic Surgery Orthopaedic Surgery of the Spine; FAMILY PHYSICIAN Family Medicine | DX: S22.060D Wedge compression fracture of T7-T8 vertebra, subsequent encounter for fracture with routine healing (principal) | CPT/HCPCS: 72146 ==

== ENCOUNTER 2023-11-14 11:52 | Emergency (ER) | payer OTHER, SELFPAY ==
[2023-11-14 12:04] VITALS: BP 119/80
[2023-11-14 13:44] LABS: Urine Albumin Negative (Neg - Trace); Urine Bilirubin Negative (Negative); Urine Character Clear (Clear); Urine Color Yellow; Urine Glucose Negative (Negative); Urine Ketone Negative (Negative); Urine Leukocyte Trace (Negative); Urine Nitrite Negative (Negative); Urine Occult Blood Negative (Negative); Urine Specific Gravity 1.015 (<1.030); Urine Urobilinogen Negative (Neg - 1+)
[2023-11-14 14:26] LABS: Urine Amorphous Seen; Urine Mucus Few
[2023-11-14 14:27] LABS: Urine Bacteria Few (Negative); Urine Red Blood Cell 0-2 /HPF (0-2); Urine Urothelial Cell 26-30 /LPF (FEW)
[2023-11-14 15:55] VITALS: BMI 26.4
--- NOTE | 2023-11-14 15:55 | ED.GENMED ---
History of Present Illness
<Audelia Stokes PA-C - Last Filed: 11/14/23 18:57>
General
Chief Complaint: Back Pain
Source: patient
Exam Limitations: none
Time Seen by Provider: 11/14/23 15:35
Nursing documentation reviewed up to this point in time: agreed with
Travel History
Have you had any contact with someone who has COVID-19?: No
Do you have any symptoms of coronavirus? Fever > 100 degrees, chills, cough, shortness of breath, sore throat, loss of taste or smell, muscle aches, or headache?: No
History of Present Illness
History of Present Illness:
Patient is a 78-year-old female with history hypertension, pulmonary emboli, kidney stone presenting for evaluation of right lower back pain. Patient does deal with a significant amount of chronic back pain at rest due to compression fractures but
noticed an acute worsening right lower back pain this past /Wednesday. Pain has been persistent and worsening since then. She states the pain is definitely worse with movement. She does endorse some recent increase in urinary frequency but
denies any dysuria or hematuria. She denies any fever, chills, abdominal pain, diarrhea, constipation. She denies any bowel/bladder incontinence, numbness/tingling in lower extremities, weakness. She tried taking 50 mg tramadol this morning
without any improvement. She denies any recent falls or trauma.
Patient was seen by her spine provider this past . She recently had an MRI performed on for of her thoracic spine which did show a new compression fracture. She has an appointment scheduled for this coming Wednesday for possible
epidural.
Past History
<Audelia Stokes PA-C - Last Filed: 11/14/23 18:57>
Past History
ED Past Medical History: Asthma, HTN and Other (PE, kidney stones)
ED Past Surgical History: Bowel resection and Other (Varicose vein surgery, kidney stone removal with kidney rupture, tubal ligation, 3 feet of small intestine removed.)
Social History
Tobacco: Non-smoker
Alcohol: None
Drug: None
Personal:
Living: alone
Employment: Retired
Family History
Family History: Other (Diabetes, hypertension, CAD)
Phy Exam
<Audelia Stokes PA-C - Last Filed: 11/14/23 18:57>
Physical Exam
Physical Exam:
General: In mild distress due to pain and non-toxic
Vitals: Slightly tachycardic, otherwise vital signs stable; afebrile
HEENT: Atraumatic, normocephalic; pupils equal round and reactive to light bilaterally; protecting airway
Neck: appears supple, no JVD or cervical spine tenderness
CV: Slightly tachycardic, heart No evidence of cyanosis
Resp: No evidence of respiratory distress, lungs clear bilaterally
Abd: Soft, nontender in all 4 quadrants, non-distended
Extremities: No deformities, no evidence of cyanosis or edema strength 5/5 in upper and lower extremities
Back: Significant reproducible tenderness at right piriformis and SI joint; no midline spinal tenderness of cervical spinal tenderness; no obvious deformity spine, no visible bruises/rashes; straight leg test negative bilaterally
Neuro: alert and oriented to person, place, time; speech normal, no focal motor deficits; sensation fully intact
Psych: Normal affect
Skin: Intact, no rash or bruises
Course
<Audelia Stokes PA-C - Last Filed: 11/14/23 18:57>
Orders/Labs/Results
Orders:
Orders
11/14/23 13:19
Urinalysis Reflex To Culture Urgent
Date Specimen was Collected: 11/14/23
Time Specimen was Collected: 13:18
Urine Microscopic Reflex Cult Urgent
11/14/23 16:28
Prednisone [Deltasone] 50 mg PO NOW STA
11/14/23 16:30
diazePAM [Valium Injection] 5 mg IM NOW STA
11/14/23 17:32
Lidocaine [Lidocaine 4% Patch] 1 patch TOPICAL NOW STA
Abnormal Lab Results
11/14/23
13:19
Leukocyte Esterase Rfl Trace A
(Negative)
Urine Bacteria (Reflex) Few A
(Negative)
Vital Signs
Initial and Last Documented VS:
Initial Vital Signs
Temp Pulse Resp BP Pulse Ox
98.9 F 108 22 119/80 97
11/14/23 12:04 11/14/23 12:04 11/14/23 12:04 11/14/23 12:04 11/14/23 12:04
Last Documented Vital Signs
Temp Pulse Resp BP Pulse Ox
98.9 F 108 22 119/80 97
11/14/23 12:04 11/14/23 12:04 11/14/23 12:04 11/14/23 12:04 11/14/23 12:04
<Oscar Manriquez, DO - Last Filed: 11/14/23 17:55>
Orders/Labs/Results
Orders:
Orders
11/14/23 13:19
Urinalysis Reflex To Culture Urgent
Date Specimen was Collected: 11/14/23
Time Specimen was Collected: 13:18
Urine Microscopic Reflex Cult Urgent
11/14/23 16:28
Prednisone [Deltasone] 50 mg PO NOW STA
11/14/23 16:30
diazePAM [Valium Injection] 5 mg IM NOW STA
11/14/23 17:32
Lidocaine [Lidocaine 4% Patch] 1 patch TOPICAL NOW STA
Abnormal Lab Results
11/14/23
13:19
Leukocyte Esterase Rfl Trace A
(Negative)
Urine Bacteria (Reflex) Few A
(Negative)
Vital Signs
Initial and Last Documented VS:
Initial Vital Signs
Temp Pulse Resp BP Pulse Ox
98.9 F 108 22 119/80 97
11/14/23 12:04 11/14/23 12:04 11/14/23 12:04 11/14/23 12:04 11/14/23 12:04
Last Documented Vital Signs
Temp Pulse Resp BP Pulse Ox
98.9 F 108 22 119/80 97
11/14/23 12:04 11/14/23 12:04 11/14/23 12:04 11/14/23 12:04 11/14/23 12:04
<Audelia Stokes PA-C - Last Filed: 11/14/23 18:57>
MDM/Problems Addressed
Differential Diagnosis Includes:
Sciatica, muscle strain/spasm, kidney stone, pyelonephritis, shingles
MDM/Problems Addressed:
78-year-old female with history as documented presenting for evaluation of chronic low back pain with acute worsening few days ago. Reports pain worse with movement in right lower back. No recent trauma or injuries. There are known compression
fractures that patient follows with Dr. Art Nash for pain management. Plan is for possible epidural this Wednesday. No red flag back pain symptoms. Not concerned for cauda equina. Patient's vital signs are acceptable, she is afebrile. Urinalysis
obtained in triage shows no blood in urine or signs of acute infection. Physical exam as documented above. She is in mild distress due to pain. Back pain is clearly reproducible most significant at right piriformis/SI joint. Straight leg test
negative. There are no focal neurologic deficits. Patient has tried many pain medications before without any improvement. Will give IM Valium and steroids. Will reassess.
Given that patient had recent MRI approximately 1 week ago�do not feel there is any utility in x-ray imaging at this time
Patient reports mild improvement after Valium. Will apply lidocaine patch. She has remained stable while in emergency department. Discussed discharge to home with steroid course and Tylenol as needed. Discussed at length risks of taking narcotic
medication given that patient lives alone. Advised patient to follow-up with painting worker on Wednesday for possible epidural. Patient and patient's daughter comfortable with this plan. All questions answered.
Chronic conditions affecting care:
History of kidney stones, compression fractures
Acute Exacerbation and/or Progression of Chronic Illness:
N/A
<Audelia Stokes PA-C - Last Filed: 11/14/23 18:57>
*Pulse Oximetry
Patient hypoxic: no
*EKG
Interpreted by ED Provider?: NA
*Flap Maker Interpretation
Rate: Flap Maker- N/A
*Critical Care Note
Total Time (30-74mins, 75-104mins- exclusive of procedures): Not Applicable
ED Attending Note
<Audelia Stokes PA-C - Last Filed: 11/14/23 18:57>
-
Portions of this chart may have been created with voice recognition software.� Occasional wrong word or��sound alike� substitutions may have occurred due to the inherent limitations of voice recognition software.
<Oscar Manriquez DO - Last Filed: 11/14/23 17:55>
ED Attending Note
Patient seen and examined by attending physician: Yes
I performed a history and physical exam of patient and discussed management with resident, I reviewed resident's note and agree with documented findings and plan of care.: Yes
ED Attending Note:
I have reviewed and agree with history and treatment plan by Audelia Stokes. My exam revealed tender palpation at right piriformis and right SI joint. No signs of cauda equina. Mild improvement with Valium. Will discharge to follow-up with pain
management.
Discharge Plan
Departure
Patient Disposition: Home (Routine Discharge)
Date of Disposition: 11/14/23
Time of Disposition: 17:55
Patient with high blood pressure during this ER visit?: No
Condition: Good
Covid-19: Not Applicable
Discharge Problem:
Back pain
Instructions: Low Back Pain (DC), Sciatica (DC)
Prescriptions:
New
prednisone 20 mg tablet
40 mg PO DAILY 5 Days Qty: 10 0RF
prednisone 20 mg tablet
40 mg PO DAILY 5 Days Qty: 10 0RF
No Action
cyanocobalamin (vitamin B-12) 1,000 MCG tablet
1,000 mcg PO Q3W
iron, carbonyl [Feosol] 45 MG tablet
45 mg PO DAILY
cholecalciferol (vitamin D3) 2,000 UNITS tablet
4,000 units PO DAILY
multivitamin with folic acid [Tab-A-Sawyer] 1 TABLET tablet
1 tab PO DAILY
Align 4 MG capsule
4 mg PO DAILY
Eliquis 5 MG tablet
5 mg PO BID
carvedilol 12.5 mg Tablet
12.5 mg PO BID
travoprost [Travatan Z] 0.004 % Drops
1 drp BOTH EYES QPM
methenamine hippurate [Hiprex] 1 gram Tablet
1 g PO BID
furosemide [Lasix] 20 mg Tablet
20 mg PO DAILY
Systane (PF) 0.4-0.3 % Dropperette
1 drp OPHTHALMIC (EYE) BID
TheraTears 0.25 % Dropperette
1 drp BOTH EYES QID PRN (Reason: dry eyes )
calcium citrate 250 mg calcium Tablet
500 mg PO NOON
melatonin 5 mg Tablet
5 mg PO HS PRN (Reason: sleep )
Azo Cranberry 250 mg Tablet,Chewable
500 mg PO DAILY
acetaminophen [Pain Relief ES (acetaminophen)] 500 mg Tablet
1,000 mg PO TID Qty: 0 0RF
polyethylene glycol 3350 [HealthyLax] 17 gram Powder In Packet
17 g PO DAILYPRN PRN (Reason: constipation) Qty: 0 0RF
gabapentin 100 mg Capsule
100 mg PO TID Qty: 0 0RF
oxycodone 5 mg Tablet
5 mg PO Q4HPRN PRN (Reason: moderate pain) Qty: 6 0RF
Referrals:
rAt Nash MD [Active] - Call in 1-3 days for appt
Zenobia Spivey MD [Family Provider] -
Activity Restrictions/Additional Instructions:
-Return to the emergency department with any high fevers, intractable pain, numbness/tingling in lower extremities, weakness in lower extremities, bowel/bladder incontinence, severe abdominal pain, intractable nausea/vomiting, worsening in current
symptoms, or any other concerns
-The prescription for prednisone has been sent to your pharmacy. You should start this tomorrow and take for the next 5 days.
-You can take Tylenol for discomfort. You can try [id number] lidocaine patches as needed for pain.
-As discussed�you should follow-up with your spine/pain management doctor for further evaluation/management of chronic back pain
Interventions
Interventions:
*Risk Screen - Suicide Last Done: 11/14/23 12:04
*General Assessment Last Done: 11/14/23 12:04
*Neglect/Abuse Screening Last Done: 11/14/23 12:04
ED- Fall Risk Assessment Last Done: 11/14/23 15:56
*ED COVID-19 Vaccine History Last Done: 11/14/23 15:56
*Nursing Disposition Last Done: 11/14/23 18:56
ED-Musculoskeletal Assessment Last Done: 11/14/23 15:57
Discharge Date and Time
Print Language: COLOMBIAN
[2023-11-14] MEDS: DELTASONE 50 MG PO (16:35)
[2023-11-14] MEDS: VALIUM INJECTION 5 MG IM (16:35)
[2023-11-14] MEDS: LIDOCAINE 4% PATCH 1 PATCH TOPICAL (18:13)
== END 2023-11-14 18:56 | disposition home or self-care (01) ==
LOC: EMR 11:52
PROVIDERS: Emergency Medicine; EMERGENCY PHYSICIAN Emergency Medicine; FAMILY PHYSICIAN Family Medicine
DX: M54.50 Low back pain, unspecified (principal); G89.29 Other chronic pain; M48.50XA Collapsed vertebra, not elsewhere classified, site unspecified, initial encounter for fracture; Z87.442 Personal history of urinary calculi
CPT/HCPCS: 99284; 96372; 81003; 81015

== ENCOUNTER 2024-09-15 16:55 | Day surgery (SDC) | payer OTHER, SELFPAY ==
[2024-09-15] VITALS (14 sets, daily range): BP systolic 100–131; BP diastolic 57–100; BMI 25.8
[2024-09-15 11:11] LABS: % Basophils 0.5 % (0-2); % Eosinophils 0.7 % (0-6); % Immature Granulocytes 0.5 % (0-0.5); % Lymphocytes 12.1 % (20.5-51.1); % Monocytes 9.7 % (1.7-9.3); % Neutrophils 76.5 % (42.2-75.2); Absolute Eosinophils 0.1 10^3/uL (0-0.7); Absolute Monocytes 0.8 10^3/uL (0.1-0.6); Absolute Neutrophils 6.6 10^3/uL (1.4-6.5); Hemoglobin 10.4 g/dL (12.0-16.0); Mean Corp Hgb Conc. 32.5 g/dL (33.0-37.0); Mean Corpuscular Hgb 29.9 pg (27.0-31.0); Nucleated Red Blood Cells % 0 %; Platelet Count 130 10^3/uL (130-400); Red Blood Cell Count 3.48 10^6/uL (4.20-5.40); Red Cell Dist. Width 18.7 % (11.5-14.5); White Blood Cell Count 8.6 10^3/uL (4.8-10.8)
[2024-09-15 11:20] LABS: ALT (SGPT) 14 U/L (0-35); AST (SGOT) 21 U/L (14-36); Albumin 3.5 g/dl (3.5-5.0); Alkaline Phosphatase 59 U/L (38-126); Blood Urea Nitrogen 20 mg/dl (7-17); Calcium 7.5 mg/dl (8.4-10.2); Carbon Dioxide 16 mmol/L (22-30); Chloride 111 mmol/L (98-107); Glucose 114 mg/dl (70-99); Potassium 4.2 mmol/L (3.5-5.1); Sodium 135 mmol/L (135-145); Total Bilirubin 1.4 mg/dl (0.2-1.3); Total Protein 5.9 g/dl (6.3-8.2); eGFR 30.13
--- NOTE | 2024-09-15 13:07 | ED.GENMED ---
History of Present Illness
General
Chief Complaint: Flank Pain
Source: patient
Time Seen by Provider: 09/15/24 11:55
History of Present Illness
History of Present Illness:
79-year-old female presents to the emergency room complaining of right flank pain. Flank pain began yesterday midmorning and has been constant since then. She contacted the urology office and was told by Dr. Mejia to come to the emergency room.
She denies any fever. The pain is severe currently and is associated with nausea and vomiting. Patient has had kidney stones in the past.
Past History
Past History
ED Past Medical History: Asthma, HTN and Other (PE, kidney stones)
ED Past Surgical History: Bowel resection and Other (Varicose vein surgery, kidney stone removal with kidney rupture, tubal ligation, 3 feet of small intestine removed.)
Social History
Tobacco: Non-smoker
Alcohol: None
Drug: None
Personal:
Living: alone
Employment: Retired
Family History
Family History: Other (Diabetes, hypertension, CAD)
Phy Exam
Physical Exam
Physical Exam:
General: Awake, Alert, Oriented X3. Patient appears uncomfortable
Vitals: Afebrile, mildly
Head: Atraumatic
Eyes: Pupils equal, EOMI
Throat: Airway intact, no exudates
Neck: Trachea midline
Lungs: Clear and equal b/l
Heart: Regular rate, no murmurs
Abd: Soft, Nontender, No pulsatile mass
Back: Right CVA tenderness to percussion
Neuro: Nonfocal
Skin: Warm, dry, no rash
Extremities: pulses equal b/l, no edema
Course
Orders/Labs/Results
Orders:
Orders
09/15/24 10:35
CT Abd/pel Without Iv Or Oral Urgent
Comment:
Reason For Exam: flank pain
09/15/24 10:58
Complete Blood Count/With Diff Urgent
Comprehensive Metabolic Panel Urgent
09/15/24 13:03
Acetaminophen [Tylenol] 1,000 mg PO NOW STA
HYDROmorphone [Dilaudid] 0.5 mg IV NOW STA
Ondansetron Injectable [Zofran] 4 mg IV NOW STA
09/15/24 13:04
0.9% Sodium Chloride 500 ml [Nss] 500 ml IV BOLUS
09/15/24 14:32
Urinalysis Reflex To Culture Urgent
Date Specimen was Collected: 09/15/24
Time Specimen was Collected: 14:31
Urine Microscopic Reflex Cult Urgent
Urine Culture Urgent
PHYLLIS Source: U
Specimen Description:
Date Specimen was Collected: 09/15/24
Time Specimen was Collected: 14:31
09/15/24 15:20
CefTRIAXone [Rocephin] 1,000 mg IV NOW STA
09/15/24 15:[address] Non Medication Order As Directed
Physician Order: Notify MD when med rec done
09/15/24 15:56
Sterile Water [Sterile Water For Injection] 10 ml .ROUTE .STK-MED ONE
09/15/24 15:57
Sterile Water [Sterile Water For Injection] 10 ml .ROUTE .STK-MED ONE
09/15/24 16:04
LevoFLOXacin 500 MG/100 ML [Levaquin] 500 mg in 100 ml IV NOW
09/15/24 16:05
Anti-embolism (SAM) Hose As Directed
Type: Thigh high
Sequential Compression Device [Pneumatic Compression Sleeves] As Directed
Type: Thigh high
Surgical Procedure As Directed
Surgical Procedure: right ureteroscopy
DX Deep Vein Thrombosis Video Routine
Abnormal Lab Results
09/15/24 09/15/24
10:58 14:32
RBC 3.48 L 10^6/uL
(4.20-5.40)
Hgb 10.4 L g/dL
(12.0-16.0)
Hct 32.0 L %
(37.0-47.0)
MCHC 32.5 L g/dL
(33.0-37.0)
RDW 18.7 H %
(11.5-14.5)
Absolute Neuts (auto) 6.6 H 10^3/uL
(1.4-6.5)
Absolute Lymphs (auto) 1.0 L 10^3/uL
(1.2-3.4)
Absolute Monos (auto) 0.8 H 10^3/uL
(0.1-0.6)
Neutrophils % 76.5 H %
(42.2-75.2)
Lymphocytes % 12.1 L %
(20.5-51.1)
Monocytes % 9.7 H %
(1.7-9.3)
Chloride 111 H mmol/L
(98-107)
Carbon Dioxide 16 L mmol/L
(22-30)
BUN 20 H mg/dl
(7-17)
Creatinine 1.7 H mg/dL
(0.6-1.0)
Glucose 114 H mg/dl
(70-99)
Calcium 7.5 L mg/dl
(8.4-10.2)
Total Bilirubin 1.4 H mg/dl
(0.2-1.3)
Total Protein 5.9 L g/dl
(6.3-8.2)
Ur Occult Blood Reflex 4+ A
(Negative)
Leukocyte Esterase Rfl 3+ A
(Negative)
Urine RBC 30-40 A /HPF
(0-2)
Urine WBC (Reflex) 30-40 A /HPF
(0-5)
Urine Bacteria (Reflex) Few A
(Negative)
Urine Albumin (Reflex) 2+ A
(Neg - Trace)
09/15/24 10:58
09/15/24 10:58
Vital Signs
Initial and Last Documented VS:
Initial Vital Signs
Temp Pulse Resp BP Pulse Ox
98.2 F 110 16 126/100 98
09/15/24 10:44 09/15/24 10:44 09/15/24 10:44 09/15/24 10:44 09/15/24 10:44
Last Documented Vital Signs
Temp Pulse Resp BP Pulse Ox
98.2 F 110 18 126/100 98
09/15/24 10:44 09/15/24 10:44 09/15/24 12:00 09/15/24 10:44 09/15/24 10:44
MDM/Problems Addressed
Differential Diagnosis Includes:
Kidney stone, pyelonephritis, shingles
MDM/Problems Addressed:
Patient presents with right flank pain. Urine concerning for possible infection with 30-40 RBCs and 34 WBCs per high-power field. Fortunately patient is afebrile. Chemistry shows signs of dehydration with a BUN of 20 creatinine 1.7 and a mildly
low bicarb. IV fluids ordered. CT shows a 4 mm stone in the proximal ureter on the right. Case discussed with urology who came to evaluate the patient. Will hospitalize her and she is tentatively been placed on the OR schedule.
*Radiology
Radiology exam reviewed: radiology read reviewed
*Pulse Oximetry
Patient hypoxic: no
*Critical Care Note
Total Time (30-74mins, 75-104mins- exclusive of procedures): Not Applicable
ED Attending Note
-
Portions of this chart may have been created with voice recognition software.� Occasional wrong word or��sound alike� substitutions may have occurred due to the inherent limitations of voice recognition software.
Discharge Plan
Departure
Patient Disposition: Admit
Date of Disposition: 09/15/24
Time of Disposition: 15:24
Admit to: Med/Surg
Presentation/result/management discussed w/ accepting MD/DO: Hospitalist
Condition: Fair
Discharge Problem:
Kidney stone on right side
Prescriptions:
No Action
cyanocobalamin (vitamin B-12) 1,000 MCG tablet
1,000 mcg PO Q3W
iron, carbonyl [Feosol] 45 MG tablet
45 mg PO DAILY
cholecalciferol (vitamin D3) 2,000 UNITS tablet
4,000 units PO DAILY
multivitamin with folic acid [Tab-A-Sawyer] 1 TABLET tablet
1 tab PO DAILY
Align (B.infantis) 4 MG capsule
4 mg PO DAILY
Eliquis 5 MG tablet
5 mg PO BID
carvedilol 12.5 mg Tablet
12.5 mg PO BID
travoprost [Travatan Z] 0.004 % Drops
1 drp BOTH EYES QPM
furosemide [Lasix] 20 mg Tablet
20 mg PO DAILY
Systane (PF) 0.4-0.3 % Dropperette
1 drp OPHTHALMIC (EYE) BID
TheraTears 0.25 % Dropperette
1 drp BOTH EYES QID PRN (Reason: dry eyes )
calcium citrate 250 mg calcium Tablet
500 mg PO NOON
melatonin 5 mg Tablet
5 mg PO HS PRN (Reason: sleep )
Azo Cranberry 250 mg Tablet,Chewable
500 mg PO DAILY
acetaminophen [Pain Relief ES (acetaminophen)] 500 mg Tablet
1,000 mg PO TID Qty: 0 0RF
polyethylene glycol 3350 [HealthyLax] 17 gram Powder In Packet
17 g PO DAILYPRN PRN (Reason: constipation) Qty: 0 0RF
gabapentin 100 mg Capsule
100 mg PO TID Qty: 0 0RF
Referrals:
Zenobia Spivey MD [Family Provider] -
Interventions
Interventions:
*Risk Screen - Suicide Last Done: 09/15/24 10:44
*General Assessment Last Done: 09/15/24 13:27
*Neglect/Abuse Screening Last Done: 09/15/24 10:44
*ED COVID-19 Vaccine History Last Done: 09/15/24 13:27
QD-Zkhdxs-Jcrqihlxcp Assessment Last Done: 09/15/24 13:27
ED-Female Genitourinary Assessment Last Done: 09/15/24 13:27
Discharge Date and Time
Print Language: [id number]
[2024-09-15] MEDS: ZOFRAN 4 MG IV (13:11)
[2024-09-15] MEDS: TYLENOL 1000 MG PO (13:11)
[2024-09-15] MEDS: DILAUDID 0.5 MG IV (13:11)
[2024-09-15] MEDS: NSS 500 IV (13:12)
[2024-09-15 14:50] LABS: Urine Albumin 2+ (Neg - Trace); Urine Bilirubin Negative (Negative); Urine Character Slightly Cloudy (Clear); Urine Color Yellow; Urine Glucose Negative (Negative); Urine Ketone Negative (Negative); Urine Leukocyte 3+ (Negative); Urine Nitrite Negative (Negative); Urine Occult Blood 4+ (Negative); Urine Specific Gravity 1.015 (<1.030); Urine Urobilinogen Negative (Neg - 1+)
[2024-09-15 14:58] LABS: Urine Bacteria Few (Negative); Urine Red Blood Cell 30-40 /HPF (0-2); Urine White Cell 30-40 /HPF (0-5)
[2024-09-15] MEDS: ROCEPHIN 1000 MG IV (15:59)
--- NOTE | 2024-09-15 16:02 | CONS.URO ---
Consultation
-
Date/Time Consultation Performed: 09/15/24 2045
Requesting Provider: Tg
Performing Provider: Tomas
Reason for Consultation: right ureteral stone
Medical History
History of Present Illness
Dr Mas's note: '79-year-old female presents to the emergency room complaining of right flank pain. Flank pain began yesterday midmorning and has been constant since then. She contacted the urology office and was told by Dr. Mejia to come to
the emergency room. She denies any fever. The pain is severe currently and is associated with nausea and vomiting.'
Past Medical History
Past Medical History: Other (Asthma, HTN, PE, kidney stones)
Allergies/Home Medications
Allergies
Allergy/AdvReac Type Severity Reaction Status Date / Time
ampicillin Allergy Rash Verified 09/15/24 10:47
ibuprofen Allergy does not Verified 09/15/24 10:47
take do to
blood
thinners.
latex [Latex] Allergy SWELLING,RA Verified 09/15/24 10:47
SH
NSAIDS (Non-Steroidal Allergy does not Verified 09/15/24 10:47
Anti-Inflamma take due
to blood
thinners
Penicillins Allergy Rash Verified 09/15/24 10:47
Sulfa (Sulfonamide Allergy Rash Verified 09/15/24 10:47
Antibiotics)
Home Medications
�Medication �Instructions �Recorded �Confirmed �Type
cholecalciferol (vitamin D3) 50 4,000 units PO DAILY Supplement 12/19/19 09/15/23 History
mcg (2,000 unit) tablet
cyanocobalamin (vitamin B-12) 1,000 mcg PO Q3W Supplement 12/19/19 09/15/23 History
1,000 mcg tablet
iron, carbonyl 45 mg tablet 45 mg PO DAILY Supplement 12/19/19 09/15/23 History
(Feosol)
multivitamin with folic acid 400 1 tab PO DAILY Supplement 12/19/19 09/15/23 History
mcg tablet (Tab-A-Sawyer)
Bifidobacterium infantis 4 mg 4 mg PO DAILY Supplement 01/09/20 09/15/23 History
capsule (Align (B.infantis))
apixaban 5 mg tablet (Eliquis) 5 mg PO BID Blood Clot 10/20/21 09/15/23 History
Prevention/Tx
calcium citrate 500 mg PO NOON Supplement 09/15/23 09/15/23 History
carboxymethylcellulose sodium 0.25 1 drp BOTH EYES QID PRN dry eyes 09/15/23 09/15/23 History
% eye drops in a dropperette
(TheraTears)
carvedilol 12.5 mg tablet 12.5 mg PO BID Heart Disease/Blood 09/15/23 09/15/23 History
Pressure
cranberry fruit concentrate 250 mg 500 mg PO DAILY Supplement 09/15/23 09/15/23 History
chewable tablet (Azo Cranberry)
furosemide 20 mg tablet (Lasix) 20 mg PO DAILY Fluid 09/15/23 09/15/23 History
Retention/Swelling
melatonin 5 mg tablet 5 mg PO HS PRN sleep 09/15/23 09/15/23 History
peg 400-propylene glycol (PF) 0.4 1 drp ophthalmic (eye) BID dry eyes 09/15/23 09/15/23 History
%-0.3 % eye drops in a dropperette
(Systane (PF))
travoprost 0.004 % eye drops 1 drp BOTH EYES QPM Eye Condition 09/15/23 09/15/23 History
(Travatan Z)
acetaminophen 500 mg tablet (Pain 1,000 mg (2 x 500 mg) PO TID #0 09/17/23 Rx
Relief Extra Strength tabs
(acetaminophen))
gabapentin 100 mg capsule 100 mg PO TID #0 caps 09/17/23 Rx
polyethylene glycol 3350 17 gram 17 g PO DAILYPRN PRN constipation 09/17/23 Rx
oral powder packet (HealthyLax) #0 ea
Physical Exam
Vital Signs
Vital Signs
Temp Pulse Resp BP Pulse Ox
98.2 F 110 18 126/100 98
09/15/24 10:44 09/15/24 10:44 09/15/24 12:00 09/15/24 10:44 09/15/24 10:44
Lab / Testing Results
Laboratory Results
09/15/24 10:58
09/15/24 10:58
Physical Exam
adult female
Genito-urinary: No Costovertebral Tend
Skin: Warm
Neuro: Awake and Alert
Assessment / Plan
-
right ureteral calculi, possible UTI
Rec: pt advised to undergo surgical removal of stones plus placement of right ureteral stent -- consent signed
Data Reviewed
-
CT Scan: Image personally visualized and interpreted
Lab Data: Labs Reviewed
Old Records: Reviewed
--- NOTE | 2024-09-15 17:00 | HPS.HSE ---
Family Physician
-
Family Physician: Zenobia Spivey
Chief Complaint
-
Right flank pain
History of Present Illness
79-year-old female with past medical history of vertebral compression fractures, osteoporosis, hypertension, chronic anemia, DVT/PE on Eliquis, nephrolithiasis came to the hospital with right flank pain and intractable nausea and vomiting. Per
patient her symptoms started yesterday and now have gotten worse. She contacted urology office and was instructed to come to the ED for evaluation. CT scan consistent with nephrolithiasis, obstructed on the right with hydronephrosis. Denies any
fever. Does have nausea and vomiting. Seen by urology in the ED and plan is for possible OR.
Medical History
Past Medical History
Past Medical History: Reports HTN and Other (DVT/PE, nephrolithiasis)
Past Surgical History: Reports Bowel Resection and Other (Varicose vein surgery, kidney stone removal)
Social History
Tobacco: Non-smoker
Alcohol: None
Family History
Family History: Not pertinent
Allergies / Home Medications
Allergies reflects when Allergies were last updated in [facility].
Home Medications with original date entered in [facility]
Allergy/Medication List:
Allergies
Allergy/AdvReac Type Severity Reaction Status Date / Time
ampicillin Allergy Rash Verified 09/15/24 10:47
ibuprofen Allergy does not Verified 09/15/24 10:47
take do to
blood
thinners.
latex [Latex] Allergy SWELLING,RA Verified 09/15/24 10:47
SH
NSAIDS (Non-Steroidal Allergy does not Verified 09/15/24 10:47
Anti-Inflamma take due
to blood
thinners
Penicillins Allergy Rash Verified 09/15/24 10:47
Sulfa (Sulfonamide Allergy Rash Verified 09/15/24 10:47
Antibiotics)
Home Medications
cholecalciferol (vitamin D3) 50 mcg (2,000 unit) tablet 2,000 units PO DAILY Supplement 12/19/19
multivitamin with folic acid 400 mcg tablet (Tab-A-Sawyer) 1 tab PO DAILY Supplement 12/19/19
Bifidobacterium infantis 4 mg capsule (Align (B.infantis)) 4 mg PO DAILY Supplement 01/09/20
apixaban 5 mg tablet (Eliquis) 5 mg PO BID Blood Clot Prevention/Tx 10/20/21
cranberry fruit concentrate 250 mg chewable tablet (Azo Cranberry) 500 mg PO DAILY Supplement 09/15/23
peg 400-propylene glycol (PF) 0.4 %-0.3 % eye drops in a dropperette (Systane (PF)) 1 drp BOTH EYES BIDPRN PRN dryness 09/15/23
travoprost 0.004 % eye drops (Travatan Z) 1 drp BOTH EYES QPM Eye Condition 09/15/23
acetaminophen 500 mg tablet (Pain Relief Extra Strength (acetaminophen)) 1,000 mg PO TIDPRN PRN mild pain 09/15/24
carvedilol 6.25 mg tablet (Coreg) 6.25 mg PO BID 09/15/24
cyanocobalamin (vitamin B-12) 1,000 mcg/mL injection solution 1,000 mcg IM QMONTH 09/15/24
loperamide 2 mg tablet 2 mg PO BIDPRN PRN diarrhea 09/15/24
methenamine hippurate 1 gram tablet 1 g PO NOON 09/15/24
potassium chloride 10 mEq tablet,extended release 10 meq PO NOON 09/15/24
vibegron 75 mg tablet (Gemtesa) 75 mg PO DAILY 09/15/24
Review of Systems
-
History Source: Patient
A 12 point ROS was completed and negative except as noted: Yes
Abdomen/GI: Reports Nausea and Vomiting
: Reports Flank Pain
Physical Exam
Vital Signs
Vital Signs
Temp Pulse Resp BP Pulse Ox
98.3 F 94 18 131/82 97
09/15/24 16:45 09/15/24 16:45 09/15/24 12:00 09/15/24 16:45 09/15/24 16:45
Physical Exam
General: Well Nourished and No Apparent Distress
HEENT: Anicteric and Moist mucous membranes
Respiratory: Clear; No Wheezes
Cardiac: S1/S2 and Regular Rhythm
Breast: Deferred by me
GI: Soft, Non Distended and Tender
Rectal: Deferred by Provider
Genito-urinary: No Potter
Musculoskeletal: No Edema
Neuro: Awake, Alert, Oriented and AO x 3
Psych: Calm and Intact Judgment/Insight
Laboratory Results
-
09/15/24 10:58
09/15/24 10:58
Laboratory Results
Total Bilirubin 1.4 mg/dl (0.2-1.3) H 09/15/24 10:58
AST 21 U/L (14-36) 09/15/24 10:58
ALT 14 U/L (0-35) 09/15/24 10:58
Alkaline Phosphatase 59 U/L (38-126) 09/15/24 10:58
Data Reviewed
-
CT Scan: Report Reviewed by me, Discussed with Patient and Discussed with Family
Lab Data: Labs Reviewed by me, Discussed with Patient and Discussed with Family
Impression/Plan
-
Right flank pain secondary to obstructive nephrolithiasis
CT scan with hydronephrosis
Plan for OR today
UA consistent with possible UTI
Start antibiotics for now
Follow urine culture
Prior urine culture with history of pansensitive E. coli
Vertebral compression fractures
Osteoporosis
Monitor
Renal insufficiency, unclear if AIRAM or CKD
Continue to monitor renal function
bladder scan
Hypertension
Continue Coreg
Anemia of chronic disease
Monitor
History of DVT/PE on Eliquis
Hold Eliquis, restart when okay with urology
DVT prophylaxis
SCDs, restart Eliquis when okay with urology
Full code
[2024-09-15] MEDS: LEVAQUIN 100 IV (19:05)
[2024-09-15] MEDS: LR 1000 IV (19:10)
--- NOTE | 2024-09-15 20:00 | PTCARENOTE ---
pt aaox3, no c/o pain. ivf running. pt oriented to room w call backk in reach
[2024-09-15] MEDS: SODIUM BICARBONATE 1300 MG PO (21:09)
[2024-09-15] MEDS: COREG 6.25 MG PO (21:09)
[2024-09-15] MEDS: XALATAN OPHTHALMIC SOLUTION 1 DROP BOTH EYES (21:10)
[2024-09-16 03:00] VITALS: BP 105/65
[2024-09-16 05:25] VITALS: BMI 25.6
[2024-09-16 07:41] VITALS: BP 109/68
[2024-09-16 07:45] LABS: % Basophils 0.2 % (0-2); % Eosinophils 0.7 % (0-6); % Immature Granulocytes 0.4 % (0-0.5); % Lymphocytes 14.9 % (20.5-51.1); % Monocytes 10.6 % (1.7-9.3); % Neutrophils 73.2 % (42.2-75.2); Absolute Lymphocytes 0.8 10^3/uL (1.2-3.4); Absolute Monocytes 0.6 10^3/uL (0.1-0.6); Absolute Neutrophils 3.9 10^3/uL (1.4-6.5); Hematocrit 27.3 % (37.0-47.0); Hemoglobin 8.7 g/dL (12.0-16.0); Mean Corp Hgb Conc. 31.9 g/dL (33.0-37.0); Mean Corpuscular Hgb 29.5 pg (27.0-31.0); Mean Corpuscular Volume 92.5 fL (81.0-99.0); Nucleated Red Blood Cells % 0 %; Platelet Count 102 10^3/uL (130-400); Red Blood Cell Count 2.95 10^6/uL (4.20-5.40); Red Cell Dist. Width 18.8 % (11.5-14.5); White Blood Cell Count 5.4 10^3/uL (4.8-10.8)
[2024-09-16 08:01] LABS: ALT (SGPT) 14 U/L (0-35); AST (SGOT) 20 U/L (14-36); Albumin 2.7 g/dl (3.5-5.0); Alkaline Phosphatase 55 U/L (38-126); Blood Urea Nitrogen 23 mg/dl (7-17); Calcium 7.1 mg/dl (8.4-10.2); Carbon Dioxide 16 mmol/L (22-30); Chloride 112 mmol/L (98-107); Estimated Creatinine Clearance 29 ml/min; Glucose 96 mg/dl (70-99); Potassium 4.4 mmol/L (3.5-5.1); Sodium 137 mmol/L (135-145); Total Bilirubin 1.1 mg/dl (0.2-1.3); Total Protein 4.9 g/dl (6.3-8.2); eGFR 38.03
[2024-09-16 09:20] VITALS: BP 139/83; PULSE 62; O2SAT 98
[2024-09-16] MEDS: COREG 6.25 MG PO (09:31)
[2024-09-16] MEDS: VISBIOME 1 CAP PO (09:31)
[2024-09-16] MEDS: SODIUM BICARBONATE 1300 MG PO (09:31)
[2024-09-16] MEDS: VITAMIN D3 (cholecalciferol) 50 MCG PO (09:32)
[2024-09-16] MEDS: THERAGRAN 1 TABLET PO (09:32)
[2024-09-16 10:24] VITALS: BP 139/83; PULSE 100
[2024-09-16] MEDS: LR IV (10:28)
--- NOTE | 2024-09-16 11:19 | W.PN.URO.CBU ---
Today's Communication / Plan
-
urologically fit for discharge
Assessment / Plan
-
UTI - strep
s/p Right Ureteral Calculi s/p ureteroscopy, stone removal, stenting 09/15/2024
stable
Diagnosis
-
Date of Service: September 16, 2024
-
Patient Diagnosis:
Right Ureteral Calculi s/p ureteroscopy, stone removal, stenting 09/15/2024
urine: strep
Post Op Day: 1
Subjective
-
'I feel great!'
Objective
-
Vital Signs
Temp Pulse Resp BP Pulse Ox
98.6 F 85 12 109/68 94
09/16/24 07:41 09/16/24 09:31 09/16/24 07:41 09/16/24 09:31 09/16/24 07:41
Intake and Output
09/15/24 09/16/24 09/17/24
06:59 06:59 06:59
Intake Total 940 / 940
Output Total 250 / 250
Balance 690 / 690
Intake:
Oral fluids 240 / 240
IV fluids (Total) 700 / 700
Normosol 100 / 100
Output:
Urine, Voided 250 / 250
Other:
Number of approximated MODERATE 2
amounts of urine
How many times incontinent 1
SATURATED amount urine
Laboratory Results
09/16/24 07:05
09/16/24 07:05
see urine cx
Physical Exam
-
General - well developed, well nourished, no acute distress
Chest - clear bilaterally
Abdomen - soft, non-tender, positive bowel sounds, no CVAT, no incisional pain or distention
Genitalia - normal
Rectal - normal
Skin - warm & dry with no rash
Neuro - AOx3, no motor deficits
Extremities - no clubbing, no cyanosis, no edema
Incision - clean, dry
Dressing - clean, dry, intact
Care Review
Data Reviewed
Discussed with: Hospitalist and Family (daughter at bedside)
[2024-09-16 11:38] VITALS: BP 110/67
--- NOTE | 2024-09-16 11:39 | W.PN.HOSP.TC ---
Today's Communication/Plan
-
Monitor vital signs see plan
Transition to oral antibiotics
Restart Eliquis
Discharge today
Patient will follow-up with urology outpatient
Assessment / Plan
Assessment / Plan
General: Well Nourished and No Apparent Distress
HEENT: Anicteric and Moist mucous membranes
Respiratory: Clear; No Wheezes
Cardiac: S1/S2 and Regular Rhythm
GI: Soft, Non Distended and Tender
Musculoskeletal: No Edema
Neuro: Awake, Alert, Oriented and AO x 3
Psych: Calm and Intact Judgment/Insight
Right flank pain secondary to obstructive nephrolithiasis
CT scan with hydronephrosis
s/p s/p Right Ureteral Calculi s/p ureteroscopy, stone removal, stenting 09/15/2024
UA consistent with possible UTI, urine culture with strep. Will transition to p.o. antibiotics and discharge
Prior urine culture with history of pansensitive E. coli
Vertebral compression fractures
Osteoporosis
Monitor
Renal insufficiency, suspect AIRAM on CKD
Continue to monitor renal function
bladder scan
Creatinine 1.4 today. Continue to monitor
Hypertension
Continue Coreg
Anemia of chronic disease
Monitor
Some low hemoglobin is secondary to dilution given recent fluids
History of DVT/PE on Eliquis
Restart Eliquis
DVT prophylaxis
Restart Eliquis
Full code
Anticipated Discharge: Today
Subjective/Interval History
-
Date of Service: September 16, 2024
Denies pain
Objective Data
-
Labs:
Laboratory Results
09/16/24 09/16/24
00:15 07:05
WBC 5.4
Hgb Cancelled 8.7 L
Hct Cancelled 27.3 L
Plt Count 102 L D
Sodium 137
Potassium 4.4
Chloride 112 H
Carbon Dioxide 16 L
BUN 23 H
Creatinine 1.4 H
Glucose 96
Calcium 7.1 L
Total Bilirubin 1.1
AST 20
ALT 14
Alkaline Phosphatase 55
Vital Signs:
Vital Signs
Temp Pulse Resp BP Pulse Ox
97.4 F 104 20 110/67 99
09/16/24 11:38 09/16/24 11:38 09/16/24 11:38 09/16/24 11:38 09/16/24 11:38
I&O
09/15/24 09/16/24 09/17/24
06:59 06:59 06:59
Intake Total 940 / 940
Output Total 250 / 250
Balance 690 / 690
[2024-09-16] MEDS: ELIQUIS 5 MG PO (13:45)
--- NOTE | 2024-09-16 14:53 | W.DCSUMMARY ---
Discharge Summary
Discharge Data
Date of Admission: 09/15/24
Date of Discharge: 09/16/24
-
Pending Results: No
Hospital Course
79-year-old female with past medical history of nephrolithiasis, vertebral compression fractures, suspected CKD, hypertension, anemia current disease, history of DVT/PE on Eliquis came to the hospital with right flank pain secondary to obstructive
uropathy. CT scan was consistent with hydronephrosis secondary to obstructive stone. Patient then had urinary tract infection as well on this hospitalization where urine culture was positive for Streptococcus. Patient initially was treated with
IV antibiotics later transitioned to p.o. antibiotics prior to discharge. Patient was seen by urology and was taken to the OR for right ureteral calculi status post ureteroscopy, stone removal and stenting. Patient also had renal insufficiency
which over time continue to improve. Patient was monitored in the hospital. And she did well. Since her symptoms continue to improve, she was then discharged home with instructions to follow-up with all her physicians outpatient.
Discharge Plan
-
Patient Disposition: Home (Routine Discharge)
Discharge Diagnosis/Procedures: Obstructed right Ureteral Stone with hydronephrosis, s/p Ureteroscopy, Laser Lithotripsy, Stenting
Urinary tract infection
Metabolic acidosis
AIRAM on suspected CKD
Diet: As tolerated
Activity: As tolerated
Driving Restrictions: As prior to admission
Bathing Restrictions: None
Blood Work: CBC and BMP next week with primary care provider
Referrals:
Rakesh Marin MD [Active] - (call to schedule removal of ureteral stent)
Zenobia Spivey MD [Family Provider] - in less than 1 week
Prescriptions:
New
sodium bicarbonate 650 mg Tablet
1,300 mg PO TID Qty: 6 0RF
cefdinir 300 mg capsule
300 mg PO BID 7 Days Qty: 14 0RF
Probiotic 10 billion cell capsule
10,000 mmu cells PO DAILY Qty: 10 0RF
Continued
cholecalciferol (vitamin D3) 2,000 UNITS tablet
2,000 units PO DAILY
multivitamin with folic acid [Tab-A-Sawyer] 1 TABLET tablet
1 tab PO DAILY
Align (B.infantis) 4 MG capsule
4 mg PO DAILY
Eliquis 5 MG tablet
5 mg PO BID
travoprost [Travatan Z] 0.004 % Drops
1 drp BOTH EYES QPM
Systane (PF) 0.4-0.3 % Dropperette
1 drp BOTH EYES BIDPRN PRN (Reason: dryness)
Azo Cranberry 250 mg Tablet,Chewable
500 mg PO DAILY
carvedilol [Coreg] 6.25 mg Tablet
6.25 mg PO BID
loperamide 2 mg Tablet
2 mg PO BIDPRN PRN (Reason: diarrhea)
potassium chloride 10 mEq Tablet Extended Release
10 meq PO NOON
cyanocobalamin (vitamin B-12) 1,000 mcg/mL Solution
1,000 mcg IM QMONTH
Gemtesa 75 mg Tablet
75 mg PO DAILY
acetaminophen [Pain Relief ES (acetaminophen)] 500 mg tablet
1,000 mg PO TIDPRN PRN (Reason: mild pain)
Held
methenamine hippurate 1 gram Tablet
1 g PO NOON
Hold Instructions: Restart when done with antibiotics for UTI
Discharge Orders:
Discharge Patient (As Directed); Ordered 09/16/24
Ordered By: Fady Bridges
Discharge Date and Time
Discharge Date/Time: 09/16/24 16:23
Print Language: ICELANDIC
--- NOTE | 2024-09-16 15:10 | CM ---
CM spoke with Lisseth who is ready for discharge today. Lisseth lives in a ranch home alone, she is (I) using walker, cooks and cleans herself. She has a commode over toilet.
Therapy has recommended [facility] and Lisseth has had [facility] in the past; areeable to same again. Daughters assist with driving and will drive her home at discharge.
Plan: Discharge to home with [facility]
[2024-09-16 15:31] VITALS: BP 131/68
== END 2024-09-16 16:23 | disposition home or self-care (01) ==
LOC: SDS 16:55
PROVIDERS: Physician Assistant; ATTENDING PHYSICIAN Internal Medicine; CONSULT PHYSICIAN Specialist; EMERGENCY PHYSICIAN Emergency Medicine; FAMILY PHYSICIAN Family Medicine
DX: N20.1 Calculus of ureter (principal); N21.0 Calculus in bladder; R10.9 Unspecified abdominal pain
CPT/HCPCS: 52356; 74018; 74176; 76000; 80053; 81003; 81015; 82365; 85025; 87077; 87086; 87147; 96374; 96375; 97162; 97166; 99284; C2617

== ENCOUNTER → 2024-10-25 08:03 | Outpatient (REF) | payer OTHER, SELFPAY | LOC: HWRAD 08:03 | PROVIDERS: ATTENDING PHYSICIAN Specialist; FAMILY PHYSICIAN Family Medicine | DX: N20.0 Calculus of kidney (principal) | CPT/HCPCS: 74176 ==

== ENCOUNTER → 2024-12-07 09:17 | Outpatient (REF) | payer OTHER, SELFPAY | LOC: RCS 09:17 | PROVIDERS: ATTENDING PHYSICIAN Internal Medicine Cardiovascular Disease; FAMILY PHYSICIAN Family Medicine | DX: I31.39 Other pericardial effusion (noninflammatory) (principal) | CPT/HCPCS: 93306 ==

== ENCOUNTER → 2024-12-14 10:25 | Outpatient (REF) | payer OTHER, SELFPAY | LOC: WDC 10:25 | PROVIDERS: ATTENDING PHYSICIAN Family Medicine | DX: Z12.31 Encounter for screening mammogram for malignant neoplasm of breast (principal) | CPT/HCPCS: 77063; 77067 ==

== ENCOUNTER → 2025-05-10 15:10 | Outpatient (REF) | payer OTHER, SELFPAY ==
[2025-05-10 17:21] LABS: Urine Character Cloudy (Clear)
[2025-05-10 18:09] LABS: Urine White Cell >100 /HPF (0-5)
== END ==
LOC: REG 15:10
PROVIDERS: ATTENDING PHYSICIAN Specialist; FAMILY PHYSICIAN Family Medicine
DX: N39.0 Urinary tract infection, site not specified (principal)
CPT/HCPCS: 81003; 81015; 87077; 87086; 87186